=== PATIENT | male | born 1945 | race Caucasian/White ===

== ENCOUNTER 2022-03-10 11:06 | Inpatient (IN) | payer MEDICARE, BC ==
--- NOTE | 2022-03-10 11:38 | ED ---
Weakness HPI - General Chief complaint: Weakness Stated complaint: fall Time Seen by Provider: 03/10/22 11:07 Source: patient, family, EMS, RN notes reviewed Mode of arrival: EMS Limitations: no limitations - History of Present Illness Initial comments: This is a 76-year-old male who presents to the emergency department for weakness. States that over the last several days, his legs have felt particularly weak and seem to be giving out on him. He essentially slides onto the floor as opposed to having any significant falls. Denies ever hitting his h ead or having any loss of consciousness. He is on eliquis. States that he slipped on the floor at around 11 PM last night, and was there until around 11 AM today. Additionally, when EMS came to get him, he had a pulse ox of 78%. He was subsequently put on 2 L of oxygen, which he does not wear at home. States that he did not feel short of breath at that time. He does have a history of congestive heart failure, but denies any pulmonary issues such as COPD or asthma. His healthcare is managed at [facility], he is here at his [facility] and was subsequently brought to this emergency department. He has also noticed an increase in swelling in both of his lower extremities and suspects that he has had a weight gain, but is not positive. He is also noted to have a cough, which he states is chronic and has been present for many years. Denies any fevers, chills, sore throat, chest pain, palpitations, abdominal pain, nausea, vomiting, diarrhea, or headaches. MD Complaint: generalized weakness Onset/Timin -: days(s) Location: E, E - Related Data Home Medications Medication Instructions Recorded Confirmed Amiodarone [Cordarone] 200 mg PO Q12H 03/10/22 03/10/22 Apixaban [Eliquis] 5 mg PO BID 03/10/22 03/10/22 Furosemide [Lasix] 20 mg PO DAILY 03/10/22 03/10/22 Metoprolol Succinate (ER) [Toprol 25 mg PO HS 03/10/22 03/10/22 Xl] Allergies Allergy/AdvReac Type Severity Reaction Status Date / Time No Known Allergies Allergy Verified 03/10/22 15:16 Review of Systems ROS Statement: Those systems with pertinent positive or pertinent negative responses have been documented in the HPI. ROS Other: All systems not noted in ROS Statement are negative. Past Medical History Additional Past Medical History / Comment(s): CHF, lower back pain Additional Past Surgical History / Comment(s): Hernia repair General Exam Limitations: no limitations General appearance: alert, in no apparent distress Head exam: Present: atraumatic, normocephalic, normal inspection Respiratory exam: Present: rhonchi, decreased breath sounds, prolonged expiratory Cardiovascular Exam: Present: regular rate, normal rhythm, normal heart sounds GI/Abdominal exam: Present: soft, normal bowel sounds. Absent: distended, tenderness Extremities exam: Present: other (3+ pitting edema bilaterally) Neurological exam: Present: alert, oriented X3, CN II-XII intact Psychiatric exam: Present: normal affect, normal mood Skin exam: Present: warm, dry, intact, normal color. Absent: rash Course Vital Signs 03/10/22 03/10/22 11:08 14:26 Temperature 97.9 F Pulse Rate 102 H Respiratory 20 Rate Blood Pressure 100/79 O2 Sat by Pulse 95 94 L Oximetry EKG Findings - EKG Comments: EKG Findings:: Atrial fibrillation with rapid ventricular response. Right axis deviation. Ventricular rate 100 beats per minute, QRS duration 158 ms, QTC 471 ms. Medical Decision Making - Medical Decision Making This is a 76-year-old male who presents to the emergency department for weakness. EKG does reveal that the patient is in atrial fibrillation. Patient states that he has a known history of this and is currently on Eliquis. He is also taking amiodarone and metoprolol. Lab work is also consistent with dehydration. BNP is elevated suggesting a CHF exacerbation and his troponin is elevated as well. Patient currently denying any chest pain, shortness of breath, or history of myocardial infarctions. Case discussed with Dr. Carter, who advised a 500 mL bolus of normal saline to treat the dehydration and avoid too much more fluid overload. His d-dimer was also mildly elevated at 0.85. After discussion with ED attending, will avoid CTA at this time, as the patient is already on Eliquis. Will order this if the admitting team would like to proceed. COVID, influenza, and RSV testing were negative. My interpretation of the chest x-ray identifies a posterior infiltrate and a small left sided pleural effusion. His son later requested an x-ray of the lower back. Patient states that he has chronic lower back pain, however his son wants to be sure that he did not injure this in the fall. X-ray of the lumbar spine ordered with results pending at the time of admission. We did try to take the oxygen off of the patient, and he did well for a couple of minutes, and his oxygen subsequently started decreasing again to 85%. He was then put back on the 2 L of oxygen. Patient started on the pneumonia protocol with ceftriaxone and azithromycin. Blood and sputum cultures were obtained prior. Will admit the patient to medicine with pulmonology and cardiology consults for pneumonia, CHF exacerbation, and elevated troponin. This case was discussed in detail with the attending ED physician. Presentation, findings, and treatment plan discussed in detail as well. - Lab Data Result diagrams: 03/10/22 11:46 03/10/22 12:27 Lab Results 03/10/22 03/10/22 03/10/22 Range/Units 11:46 11:46 12:27 WBC 9.6 (3.8-10.6) k/uL RBC 3.87 L (4.30-5.90) m/uL Hgb 14.4 (13.0-17.5) gm/dL Hct 43.4 (39.0-53.0) % MCV 112.1 H (80.0-100.0) fL MCH 37.1 H (25.0-35.0) pg MCHC 33.1 (31.0-37.0) g/dL RDW 15.2 (11.5-15.5) % Plt Count 145 L (150-450) k/uL MPV 11.2 Neutrophils % 89 % Lymphocytes % 5 % Monocytes % 5 % Eosinophils % 1 % Basophils % 0 % Neutrophils # 8.6 H (1.3-7.7) k/uL Lymphocytes # 0.5 L (1.0-4.8) k/uL Monocytes # 0.4 (0-1.0) k/uL Eosinophils # 0.0 (0-0.7) k/uL Basophils # 0.0 (0-0.2) k/uL Manual Slide Review Performed Polychromasia Present Hypochromasia Slight Macrocytosis Marked A PT 15.0 H (9.0-12.0) sec INR 1.5 H (<1.2) APTT 27.7 (22.0-30.0) sec D-Dimer 0.85 H (<0.60) mg/L FEU Sodium (137-145) mmol/L Potassium (3.5-5.1) mmol/L Chloride (98-107) mmol/L Carbon Dioxide (22-30) mmol/L Anion Gap mmol/L BUN (9-20) mg/dL Creatinine (0.66-1.25) mg/dL Est GFR (CKD-EPI)AfAm (>60 ml/min/1.73 sqM) Est GFR (CKD-EPI)NonAf (>60 ml/min/1.73 sqM) Glucose (74-99) mg/dL Lactic Ac Sepsis Rflx Plasma Lactic Acid Cy (0.7-2.0) mmol/L Calcium (8.4-10.2) mg/dL Phosphorus (2.5-4.5) mg/dL Magnesium (1.6-2.3) mg/dL Total Bilirubin (0.2-1.3) mg/dL AST (17-59) U/L ALT (4-49) U/L Alkaline Phosphatase (38-126) U/L Creatine Kinase (55-170) U/L Troponin I (0.000-0.034) ng/mL NT-Pro-B Natriuret Pep pg/mL Total Protein (6.3-8.2) g/dL Albumin (3.5-5.0) g/dL Influenza Type A (PCR) Not Detected (Not Detectd) Influenza Type B (PCR) Not Detected (Not Detectd) RSV (PCR) Not Detected (Not Detectd) SARS-CoV-2 (PCR) Not Detected (Not Detectd) 03/10/22 03/10/22 03/10/22 Range/Units 12:27 12:27 12:27 WBC (3.8-10.6) k/uL RBC (4.30-5.90) m/uL Hgb (13.0-17.5) gm/dL Hct (39.0-53.0) % MCV (80.0-100.0) fL MCH (25.0-35.0) pg MCHC (31.0-37.0) g/dL RDW (11.5-15.5) % Plt Count (150-450) k/uL MPV Neutrophils % % Lymphocytes % % Monocytes % % Eosinophils % % Basophils % % Neutrophils # (1.3-7.7) k/uL Lymphocytes # (1.0-4.8) k/uL Monocytes # (0-1.0) k/uL Eosinophils # (0-0.7) k/uL Basophils # (0-0.2) k/uL Manual Slide Review Polychromasia Hypochromasia Macrocytosis PT (9.0-12.0) sec INR (<1.2) APTT (22.0-30.0) sec D-Dimer (<0.60) mg/L FEU Sodium 142 (137-145) mmol/L Potassium 4.6 (3.5-5.1) mmol/L Chloride 103 (98-107) mmol/L Carbon Dioxide 36 H (22-30) mmol/L Anion Gap 3 mmol/L BUN 54 H (9-20) mg/dL Creatinine 1.42 H (0.66-1.25) mg/dL Est GFR (CKD-EPI)AfAm 55 (>60 ml/min/1.73 sqM) Est GFR (CKD-EPI)NonAf 48 (>60 ml/min/1.73 sqM) Glucose 103 H (74-99) mg/dL Lactic Ac Sepsis Rflx Plasma Lactic Acid Cy 2.2 H* (0.7-2.0) mmol/L Calcium 8.7 (8.4-10.2) mg/dL Phosphorus 4.1 (2.5-4.5) mg/dL Magnesium 2.0 (1.6-2.3) mg/dL Total Bilirubin 1.7 H (0.2-1.3) mg/dL AST 51 (17-59) U/L ALT 31 (4-49) U/L Alkaline Phosphatase 89 (38-126) U/L Creatine Kinase 250 H (55-170) U/L Troponin I 0.119 H* (0.000-0.034) ng/mL NT-Pro-B Natriuret Pep pg/mL Total Protein 6.1 L (6.3-8.2) g/dL Albumin 3.5 (3.5-5.0) g/dL Influenza Type A (PCR) (Not Detectd) Influenza Type B (PCR) (Not Detectd) RSV (PCR) (Not Detectd) SARS-CoV-2 (PCR) (Not Detectd) 03/10/22 03/10/22 Range/Units 12:27 13:02 WBC (3.8-10.6) k/uL RBC (4.30-5.90) m/uL Hgb (13.0-17.5) gm/dL Hct (39.0-53.0) % MCV (80.0-100.0) fL MCH (25.0-35.0) pg MCHC (31.0-37.0) g/dL RDW (11.5-15.5) % Plt Count (150-450) k/uL MPV Neutrophils % % Lymphocytes % % Monocytes % % Eosinophils % % Basophils % % Neutrophils # (1.3-7.7) k/uL Lymphocytes # (1.0-4.8) k/uL Monocytes # (0-1.0) k/uL Eosinophils # (0-0.7) k/uL Basophils # (0-0.2) k/uL Manual Slide Review Polychromasia Hypochromasia Macrocytosis PT (9.0-12.0) sec INR (<1.2) APTT (22.0-30.0) sec D-Dimer (<0.60) mg/L FEU Sodium (137-145) mmol/L Potassium (3.5-5.1) mmol/L Chloride (98-107) mmol/L Carbon Dioxide (22-30) mmol/L Anion Gap mmol/L BUN (9-20) mg/dL Creatinine (0.66-1.25) mg/dL Est GFR (CKD-EPI)AfAm (>60 ml/min/1.73 sqM) Est GFR (CKD-EPI)NonAf (>60 ml/min/1.73 sqM) Glucose (74-99) mg/dL Lactic Ac Sepsis Rflx Y Plasma Lactic Acid Cy (0.7-2.0) mmol/L Calcium (8.4-10.2) mg/dL Phosphorus (2.5-4.5) mg/dL Magnesium (1.6-2.3) mg/dL Total Bilirubin (0.2-1.3) mg/dL AST (17-59) U/L ALT (4-49) U/L Alkaline Phosphatase (38-126) U/L Creatine Kinase (55-170) U/L Troponin I (0.000-0.034) ng/mL NT-Pro-B Natriuret Pep 88219 pg/mL Total Protein (6.3-8.2) g/dL Albumin (3.5-5.0) g/dL Influenza Type A (PCR) (Not Detectd) Influenza Type B (PCR) (Not Detectd) RSV (PCR) (Not Detectd) SARS-CoV-2 (PCR) (Not Detectd) - Radiology Data Radiology results: report reviewed, image reviewed Disposition Clinical Impression: CHF exacerbation, Elevated troponin, Weakness, Dehydration, Pneumonia Disposition: ADMITTED IP TO THIS HOSP
[2022-03-10 12:13] LABS: Basophils % (A) 0 %; Eosinophils % (A) 1 %; HCT 43.4 % (39.0-53.0); HGB 14.4 gm/dL (13.0-17.5); Hypochromasia Slight; Lymphocytes # (A) 0.5 k/uL (1.0-4.8); Lymphocytes % (A) 5 %; MCH 37.1 pg (25.0-35.0); MCHC 33.1 g/dL (31.0-37.0); MCV 112.1 fL (80.0-100.0); Macrocytosis Marked; Mean Platelet Volume 11.2; Monocytes # (A) 0.4 k/uL (0-1.0); Monocytes % (A) 5 %; Neutrophils # (A) 8.6 k/uL (1.3-7.7); Neutrophils % (A) 89 %; Platelet Count 145 k/uL (150-450); RBC 3.87 m/uL (4.30-5.90); RDW 15.2 % (11.5-15.5); WBC 9.6 k/uL (3.8-10.6)
--- NOTE | 2022-03-10 12:27 | XR ---
EXAMINATION TYPE: XR chest 2V DATE OF EXAM: 03/10/2022 COMPARISON: None INDICATION: Weakness TECHNIQUE: Frontal and lateral views of the chest are obtained. FINDINGS: The heart size is normal. The pulmonary vasculature is normal. There is a small left pleural effusion. Hyperinflation flattening the diaphragms may be present. Krystin elate for COPD. Posterior infiltrate is present on the lateral projection.. Follow-up can be perform ed IMPRESSION: 1. Posterior infiltrate. Correlate for lower lobe atelectasis and pneumonia. 2. Small left pleural effusion. 3. COPD
[2022-03-10 12:39] LABS: INR 1.5 (<1.2); Partial Thromboplastin Time 27.7 sec (22.0-30.0)
[2022-03-10 12:58] LABS: Albumin 3.5 g/dL (3.5-5.0); Calcium 8.7 mg/dL (8.4-10.2); Phosphorus 4.1 mg/dL (2.5-4.5); Potassium 4.6 mmol/L (3.5-5.1); Total Bilirubin 1.7 mg/dL (0.2-1.3); Total Protein 6.1 g/dL (6.3-8.2)
[2022-03-10 13:17] LABS: Polychromasia Present
[2022-03-10] MEDS ORDERED: SODIUM CHLORIDE 0.9% 500 ML 500 ML IV STA (13:41)
[2022-03-10] MEDS ORDERED: PNEUMONIA PROTOCOL UTILIZED 1 EACH MISC PO PRN (14:01)
[2022-03-10] MEDS ORDERED: AZITHROMYCIN 500 MG in SODIUM CHLORIDE 0.9% 250 ML IVPB STA (14:01)
[2022-03-10] MEDS ORDERED: ONDANSETRON 4 MG/2 ML VIAL IVP PRN (14:57)
[2022-03-10] MEDS ORDERED: ACETAMINOPHEN TAB 325 MG TAB PO PRN (14:57)
[2022-03-10] MEDS ORDERED: HYDROcodone/APAP 5-325MG 1 EACH TAB PO PRN (14:57)
[2022-03-10] MEDS ORDERED: NALOXONE 0.4 MG/ML 1 ML VIAL IV PRN (14:57)
[2022-03-10] MEDS ORDERED: FUROSEMIDE 10 MG/ML 4 ML VIAL IV SCH (16:00)
[2022-03-10] MEDS ORDERED: LORazepam 0.5 MG TAB PO PRN (16:00)
[2022-03-10] MEDS ORDERED: AMIODARONE 200 MG TAB PO SCH (16:00)
--- NOTE | 2022-03-10 17:34 | XR ---
EXAMINATION TYPE: XR lumbar spine 2 or 3V DATE OF EXAM: 03/10/2022 5:05 PM INDICATION: Patient age:Male; 76 years old; Reason for study: Lower back pain; COMPARISON: None TECHNIQUE: Frontal, lateral and coned in L5-S1 lateral views of the spine. FINDINGS: Wedging of the L4 vertebral body with at least 25% height loss anteriorly. There are scatte red facet joint arthropathy and osteophyte formation. There is appropriate alignment of the spinal ca nal. The visualized abdomen is within normal limits. IMPRESSION: Wedging of L4 vertebral body could represent acute fracture. Consider CT for complete evaluation of t he lumbar spine.
[2022-03-10] MEDS: AMIODARONE 200 MG TAB PO SCH ×2 (21:41→21:45)
[2022-03-10] MEDS: APIXABAN 5 MG TAB PO SCH (21:45)
[2022-03-10] MEDS: FUROSEMIDE 10 MG/ML 2 ML VIAL IV SCH (21:46)
[2022-03-10] MEDS: METOPROLOL SUCCINATE (ER) 25 MG TAB.ER.24H PO SCH (21:48)
--- NOTE | 2022-03-10 22:10 | CT ---
EXAMINATION TYPE: CT thor lumbar spine wo con, CT sacrum wo con CT DLP: 1932.2 mGycm, Automated exposure control for dose reduction was used. DATE OF EXAM: 03/10/2022 9:50 PM COMPARISON: None. CLINICAL INDICATION:Male, 76 years old with history of fx; PHH, weakness. recent falls. (accession [id number]), weakness. recent falls. poss lumbar fx. (accession [id number]) TECHNIQUE: Axial images of the thoracic lumbar sacral spine were obtained without contrast. Coronal a nd sagittal reformats were performed. 3-D reformats of the bones were created on a separate workstati on and submitted for review. FINDINGS: Overall the curvature of the spine slightly straightened. There are vertebral body endplat e deformities scattered throughout the spine most pronounced at T11 L1, L2 and L4. There is mild retr opulsion at L1 measuring up to 5 mm. Additionally there is multi multilevel disc bulging throughout t he lower lumbar spine. No spinal canal stenosis visualized. As well as portions of the sacrum demonstrate degeneration changes of the sacroiliac joints bilateral ly. No evidence of sacral fracture. Remainder of the pelvis appears intact. Moderate to severe emphysema changes in lung apices. There is small bilateral pleural effusions. Hear t is enlarged for size. There is coronary artery atherosclerosis. Airspace opacities in the lungs IMPRESSION: 1. Diffuse osseous demineralization limits evaluation for acute fracture. No obvious fracture line i dentified. Consider MRI for further evaluation if there remains clinical concern. 2. L1 with retropulsion up to 5 mm could represent sequela of compression fracture. Attention on MRI . 3. No evidence for sacral fracture. Bilateral sacroiliac joint degeneration. 4. There is airspace opacity seen throughout the lungs correlate for pneumonia. 5. Cardiomegaly, pulmonary vascular congestion and pleural effusions correlate with serum BNP for he art failure.
--- NOTE | 2022-03-10 22:47 | US ---
EXAMINATION TYPE: US venous doppler duplex LE BI DATE OF EXAM: 03/10/2022 10:32 PM COMPARISON: NONE CLINICAL HISTORY: r/o DVT. SIDE PERFORMED: Bilateral TECHNIQUE: The lower extremity deep venous system is examined utilizing real time linear array sonog laith with graded compression, doppler sonography and color-flow sonography. VESSELS IMAGED: Common Femoral Vein Deep Femoral Vein Greater Saphenous Vein * Femoral Vein Popliteal Vein Small Saphenous Vein * Proximal Calf Veins (* superficial vessels) Right Leg: Negative for DVT Left Leg: Negative for DVT IMPRESSION: No evidence of deep vein thrombosis in both legs.
[2022-03-10 22:51] LABS: Glucose,Whole Blood 127 mg/dL (70-110)
--- NOTE | 2022-03-11 01:56 | HP ---
HISTORY AND PHYSICAL CHIEF COMPLAINT: Weakness. HISTORY OF PRESENT ILLNESS: This is a 76-year-old gentleman with past medical history of multiple medical problems including CHF, back pain. He is living by himself. The patient is complaining of extreme weakness, unable to move. The patient has leg swelling and some shortness of breath. The patient came to [facility]. CHF and as well as pneumonia is also suspected. The patient was admitted. Troponin is also elevated to 0.119. There is no history of any fever, rigors, or chills. The COVID RSV is negative. PAST MEDICAL HISTORY: Reviewed include CHF. The rest of history and rest of the chart is reviewed. HOME MEDICATIONS: Reviewed include metoprolol. Dose and rest of the medications reviewed. ALLERGIES: None. FAMILY HISTORY: No history of heart disease or strokes in the family. SOCIAL HISTORY: No history of smoking. Alcohol intake currently. REVIEW OF SYSTEMS: A 14-point review of systems is negative except as mentioned earlier. PHYSICAL EXAMINATION: VITAL SIGNS: Pulse 102, blood pressure 100/70, respirations 20. HEENT: Conjunctivae normal. NECK: Jugular venous distention about 10 cm distended. CARDIOVASCULAR: S1, S2 muffled. Ejection systolic murmur. RESPIRATIONS: Breath sounds diminished at the bases. A few scattered rhonchi. ABDOMEN: Soft, nontender. No mass palpable. LEGS: Bilateral leg edema pitting up to the knee. SKIN: No ulcer, rash, bleeding. JOINTS: No active deforming arthropathy. NERVOUS SYSTEM: No focal deficits. LABS: Reviewed. ASSESSMENT: 1. Congestive heart failure acute exacerbation, ejection fraction unknown. 2. Possible developing pneumonia. 3. Troponin 0.119, rule out acute [id number]-elevation myocardial infarction. 4. History of low back pain. 5. History of hernia repair. RECOMMENDATIONS AND DISCUSSION: In this 76-year-old gentleman who presented with multiple complex medical issues, we will monitor the patient closely. Continue the current management and symptomatic treatment. I would recommend initiate intravenous diuresis. Cardiology consultation. 2D echo. Complete cardiac workup. Otherwise, I would also recommend symptomatic treatment for the elevated troponin. Otherwise I will also recommend a course of antibiotics for the suspected infiltrate and Pulmonary also will be consulted. Overall prognosis remains guarded because of multiple complex medical issues, which I discussed at length with the patient and son at the bedside. Further recommendations to follow. See orders for further details. MMODL / IJN: [id number] /
[2022-03-11 04:42] LABS: Basophils % (A) 0 %; Eosinophils % (A) 0 %; HCT 43.7 % (39.0-53.0); HGB 13.7 gm/dL (13.0-17.5); Hypochromasia Moderate; Lymphocytes # (A) 0.5 k/uL (1.0-4.8); Lymphocytes % (A) 6 %; MCH 36.2 pg (25.0-35.0); MCHC 31.4 g/dL (31.0-37.0); MCV 115.2 fL (80.0-100.0); Macrocytosis Marked; Mean Platelet Volume 9.1; Monocytes # (A) 0.5 k/uL (0-1.0); Monocytes % (A) 5 %; Neutrophils # (A) 7.9 k/uL (1.3-7.7); Neutrophils % (A) 88 %; Platelet Count 162 k/uL (150-450); RBC 3.79 m/uL (4.30-5.90); RDW 15.2 % (11.5-15.5)
[2022-03-11 04:55] LABS: Albumin 2.9 g/dL (3.5-5.0); Calcium 8.2 mg/dL (8.4-10.2); Potassium 4.9 mmol/L (3.5-5.1); Total Bilirubin 0.6 mg/dL (0.2-1.3); Total Protein 5.2 g/dL (6.3-8.2)
[2022-03-11 07:09] LABS: Appearance,Urine Cloudy (Clear); Bilirubin,Urine Negative (Negative); Blood,Urine Large (Negative); Color,Urine Yellow; Glucose,Urine (UA) Negative (Negative); Hyaline Casts,Urine 14 /lpf (0-2); Ketones,Urine Negative (Negative); Leukocyte Esterase,Urine Negative (Negative); Mucus,Urine Rare /hpf; Nitrite,Urine Negative (Negative); Protein,Urine 1+ (Negative); RBC,Urine 135 /hpf (0-5); Squamous Epithelial Cell,Urine <1 /hpf (0-4); Urobilinogen,Urine <2.0 mg/dL (<2.0); WBC,Urine 6 /hpf (0-5)
--- NOTE | 2022-03-11 07:57 | XR ---
EXAMINATION TYPE: XR chest 2V DATE OF EXAM: 03/11/2022 6:44 AM COMPARISON: Chest radiograph from one day prior. TECHNIQUE: XR chest 2V Frontal and lateral views of the chest. CLINICAL INDICATION:Male, 76 years old with history of pneumonia; FINDINGS: Lungs/Pleura: No evidence of focal consolidation or pneumothorax. Blunting of the costophrenic angles is present. Pulmonary vascularity: Unremarkable. Heart/mediastinum: Cardiomediastinal silhouette is unremarkable. Musculoskeletal: No acute osseous pathology. IMPRESSION: Similar basilar airspace opacities with bilateral pleural effusions.
[2022-03-11] MEDS: PANTOPRAZOLE 40 MG TABLET PO SCH (08:07)
[2022-03-11] MEDS: AZITHROMYCIN 500 MG TAB PO SCH (08:07)
[2022-03-11] MEDS ORDERED: FUROSEMIDE 20 MG TAB PO SCH (09:00)
--- NOTE | 2022-03-11 09:34 | P.CNOR ---
History of Present Illness - [facility] Consult date: 03/11/22 Requesting physician: Vicente Quinonez Consult reason: other (fx of L4) History of present illness: Patient is a 76-year-old male who presents to the emergency department yesterday status post multiple falls at home. Patient does have medical history of CHF, Patient says he has had increasing weakness in his bilateral lower extremities over the past several days. Patient just notes this weakness seem to have been progressing slowly over the past several days and cannot pinpoint when it really started. Patient was seen at bedside this morning lying semirecumbent position. Patient denies ever hitting his head/losing consciousness. Patient says at home normally ambulates without a walker and cane. Patient denies having any pain in the lower extremities at this time. Patient does mention some low back pain that is generalized in nature and denies radiation of pain. Patient denies any saddle anesthesia/loss of bowel or bladder control. Patient denies chest pain, fever, nausea, vomiting, change in vision. Past Medical History Past Medical History: Atrial Fibrillation, Heart Failure Additional Past Medical History / Comment(s): CHF, lower back pain History of Any Multi-Drug Resistant Organisms: None Reported Additional Past Surgical History / Comment(s): Hernia repair Smoking Status: Never smoker Medications and Allergies Home Medications Medication Instructions Recorded Confirmed Type Amiodarone [Cordarone] 200 mg PO Q12H 03/10/22 03/10/22 History Apixaban [Eliquis] 5 mg PO BID 03/10/22 03/10/22 History Furosemide [Lasix] 20 mg PO DAILY 03/10/22 03/10/22 History Metoprolol Succinate (ER) [Toprol 25 mg PO HS 03/10/22 03/10/22 History Xl] Allergies Allergy/AdvReac Type Severity Reaction Status Date / Time No Known Allergies Allergy Verified 03/10/22 15:16 Physical Examination Inspection: Positive for scoliosis throughout the spine. Negative for any open fractures, significant erythema/ecchymosis/ulcers. Positive for edema in the bilateral lower extremities Sensation: Sensation is equal, symmetric, bilaterally intact throughout the upper and lower extremities on exam Palpation: There is minimal TTP diffusely throughout the lumbar spine and the bilateral SI joints. Patient is nontender to palpation throughout rest exam Range of motion: Patient has full range of motion in bilateral upper extremities on exam. Patient does have limited range of motion in bilateral lower extremit ies and hip flexion/extension. Patient does have full range of motion and knee flexion/extension bilaterally in ankle dorsi/plantar flexion. Motor: 4-/5 in bilateral hips in flexion/extension. 4/5 in all other major motor groups in bilateral lower extremities. Bilateral upper extremities 4+/5 in all major motor groups Neurovascular status: Radial pulses intact, 2+ bilaterally. Cap refill under 3 seconds in digits of upper extremities. Special tests: Negative clonus bilaterally. Negative Homans bilaterally. Negative Shayla's bilaterally. Results - Labs Labs: Abnormal Lab Results - Last 24 Hours (Table) 03/10/22 03/10/22 03/10/22 Range/Units 11:46 11:46 12:27 RBC 3.87 L (4.30-5.90) m/uL MCV 112.1 H (80.0-100.0) fL MCH 37.1 H (25.0-35.0) pg Plt Count 145 L (150-450) k/uL Neutrophils # 8.6 H (1.3-7.7) k/uL Lymphocytes # 0.5 L (1.0-4.8) k/uL Macrocytosis Marked A PT 15.0 H (9.0-12.0) sec INR 1.5 H (<1.2) D-Dimer 0.85 H (<0.60) mg/L FEU Carbon Dioxide (22-30) mmol/L BUN (9-20) mg/dL Creatinine (0.66-1.25) mg/dL Glucose (74-99) mg/dL POC Glucose (mg/dL) (70-110) mg/dL Plasma Lactic Acid Cy (0.7-2.0) mmol/L Calcium (8.4-10.2) mg/dL Total Bilirubin (0.2-1.3) mg/dL Creatine Kinase (55-170) U/L Troponin I 0.119 H* (0.000-0.034) ng/mL C-Reactive Protein (<1.0) mg/dL Total Protein (6.3-8.2) g/dL Albumin (3.5-5.0) g/dL Procalcitonin (0.02-0.09) ng/mL Urine Protein (Negative) Urine Blood (Negative) Urine RBC (0-5) /hpf Urine WBC (0-5) /hpf Hyaline Casts (0-2) /lpf Urine Mucus (None) /hpf 03/10/22 03/10/22 03/10/22 Range/Units 12:27 12:27 15:53 RBC (4.30-5.90) m/uL MCV (80.0-100.0) fL MCH (25.0-35.0) pg Plt Count (150-450) k/uL Neutrophils # (1.3-7.7) k/uL Lymphocytes # (1.0-4.8) k/uL Macrocytosis PT (9.0-12.0) sec INR (<1.2) D-Dimer (<0.60) mg/L FEU Carbon Dioxide 36 H (22-30) mmol/L BUN 54 H (9-20) mg/dL Creatinine 1.42 H (0.66-1.25) mg/dL Glucose 103 H (74-99) mg/dL POC Glucose (mg/dL) (70-110) mg/dL Plasma Lactic Acid Cy 2.2 H* (0.7-2.0) mmol/L Calcium (8.4-10.2) mg/dL Total Bilirubin 1.7 H (0.2-1.3) mg/dL Creatine Kinase 250 H (55-170) U/L Troponin I (0.000-0.034) ng/mL C-Reactive Protein 7.3 H (<1.0) mg/dL Total Protein 6.1 L (6.3-8.2) g/dL Albumin (3.5-5.0) g/dL Procalcitonin (0.02-0.09) ng/mL Urine Protein (Negative) Urine Blood (Negative) Urine RBC (0-5) /hpf Urine WBC (0-5) /hpf Hyaline Casts (0-2) /lpf Urine Mucus (None) /hpf 03/10/22 03/10/22 03/10/22 Range/Units 15:53 15:53 15:53 RBC (4.30-5.90) m/uL MCV (80.0-100.0) fL MCH (25.0-35.0) pg Plt Count (150-450) k/uL Neutrophils # (1.3-7.7) k/uL Lymphocytes # (1.0-4.8) k/uL Macrocytosis PT (9.0-12.0) sec INR (<1.2) D-Dimer (<0.60) mg/L FEU Carbon Dioxide (22-30) mmol/L BUN (9-20) mg/dL Creatinine (0.66-1.25) mg/dL Glucose (74-99) mg/dL POC Glucose (mg/dL) (70-110) mg/dL Plasma Lactic Acid Cy 3.1 H* (0.7-2.0) mmol/L Calcium (8.4-10.2) mg/dL Total Bilirubin (0.2-1.3) mg/dL Creatine Kinase (55-170) U/L Troponin I 0.109 H* (0.000-0.034) ng/mL C-Reactive Protein (<1.0) mg/dL Total Protein (6.3-8.2) g/dL Albumin (3.5-5.0) g/dL Procalcitonin 0.14 H (0.02-0.09) ng/mL Urine Protein (Negative) Urine Blood (Negative) Urine RBC (0-5) /hpf Urine WBC (0-5) /hpf Hyaline Casts (0-2) /lpf Urine Mucus (None) /hpf 03/10/22 03/10/22 03/10/22 Range/Units 17:47 19:02 22:49 RBC (4.30-5.90) m/uL MCV (80.0-100.0) fL MCH (25.0-35.0) pg Plt Count (150-450) k/uL Neutrophils # (1.3-7.7) k/uL Lymphocytes # (1.0-4.8) k/uL Macrocytosis PT (9.0-12.0) sec INR (<1.2) D-Dimer (<0.60) mg/L FEU Carbon Dioxide (22-30) mmol/L BUN (9-20) mg/dL Creatinine (0.66-1.25) mg/dL Glucose (74-99) mg/dL POC Glucose (mg/dL) 127 H (70-110) mg/dL Plasma Lactic Acid Cy 3.3 H* (0.7-2.0) mmol/L Calcium (8.4-10.2) mg/dL Total Bilirubin (0.2-1.3) mg/dL Creatine Kinase (55-170) U/L Troponin I 0.108 H* (0.000-0.034) ng/mL C-Reactive Protein (<1.0) mg/dL Total Protein (6.3-8.2) g/dL Albumin (3.5-5.0) g/dL Procalcitonin (0.02-0.09) ng/mL Urine Protein (Negative) Urine Blood (Negative) Urine RBC (0-5) /hpf Urine WBC (0-5) /hpf Hyaline Casts (0-2) /lpf Urine Mucus (None) /hpf 03/10/22 03/11/22 03/11/22 Range/Units 23:32 04:21 04:21 RBC 3.79 L (4.30-5.90) m/uL MCV 115.2 H (80.0-100.0) fL MCH 36.2 H (25.0-35.0) pg Plt Count (150-450) k/uL Neutrophils # 7.9 H (1.3-7.7) k/uL Lymphocytes # 0.5 L (1.0-4.8) k/uL Macrocytosis Marked A PT (9.0-12.0) sec INR (<1.2) D-Dimer (<0.60) mg/L FEU Carbon Dioxide 34 H (22-30) mmol/L BUN 54 H (9-20) mg/dL Creatinine 1.38 H (0.66-1.25) mg/dL Glucose 109 H (74-99) mg/dL POC Glucose (mg/dL) (70-110) mg/dL Plasma Lactic Acid Cy 2.8 H* (0.7-2.0) mmol/L Calcium 8.2 L (8.4-10.2) mg/dL Total Bilirubin (0.2-1.3) mg/dL Creatine Kinase (55-170) U/L Troponin I (0.000-0.034) ng/mL C-Reactive Protein (<1.0) mg/dL Total Protein 5.2 L (6.3-8.2) g/dL Albumin 2.9 L (3.5-5.0) g/dL Procalcitonin (0.02-0.09) ng/mL Urine Protein (Negative) Urine Blood (Negative) Urine RBC (0-5) /hpf Urine WBC (0-5) /hpf Hyaline Casts (0-2) /lpf Urine Mucus (None) /hpf 03/11/22 Range/Units 06:00 RBC (4.30-5.90) m/uL MCV (80.0-100.0) fL MCH (25.0-35.0) pg Plt Count (150-450) k/uL Neutrophils # (1.3-7.7) k/uL Lymphocytes # (1.0-4.8) k/uL Macrocytosis PT (9.0-12.0) sec INR (<1.2) D-Dimer (<0.60) mg/L FEU Carbon Dioxide (22-30) mmol/L BUN (9-20) mg/dL Creatinine (0.66-1.25) mg/dL Glucose (74-99) mg/dL POC Glucose (mg/dL) (70-110) mg/dL Plasma Lactic Acid Cy (0.7-2.0) mmol/L Calcium (8.4-10.2) mg/dL Total Bilirubin (0.2-1.3) mg/dL Creatine Kinase (55-170) U/L Troponin I (0.000-0.034) ng/mL C-Reactive Protein (<1.0) mg/dL Total Protein (6.3-8.2) g/dL Albumin (3.5-5.0) g/dL Procalcitonin (0.02-0.09) ng/mL Urine Protein 1+ H (Negative) Urine Blood Large H (Negative) Urine RBC 135 H (0-5) /hpf Urine WBC 6 H (0-5) /hpf Hyaline Casts 14 H (0-2) /lpf Urine Mucus Rare H (None) /hpf Microbiology - Last 24 Hours (Table) 03/10/22 16:22 Gram Stain - Preliminary Sputum Sputum Culture - Preliminary H & H 03/10/22 03/11/22 Range/Units 11:46 04:21 Hgb 14.4 13.7 (13.0-17.5) gm/dL Hct 43.4 43.7 (39.0-53.0) % Coagulation 03/10/22 Range/Units 11:46 INR 1.5 H (<1.2) Result Diagrams: 03/11/22 04:21 03/11/22 04:21 - Diagnostic results CT Scan - lumbar: report reviewed, image reviewed (Multiple levels of vertebral compression fractures evident) Assessment and Plan Assessment: 1. Bilateral lower extremity weakness Plan: 1. Bilateral lower extremity weakness; back pain - CT of thoracic/lumbar spine does reveal multiple levels of compression fractures. MRI of lumbar spine may be warranted for further evaluation. At this time we do not recommend any emergent/urgent orthopedic surgical intervention. We will continue to follow patient during stay in hospital. 2. Appreciate medical management 3. Pain management - [place]; Tylenol 4. DVT prophylaxis - eliquis 5. GI prophylaxis - Protonix 6. PT/OT - weightbearing as tolerated with walker and assistance. 7. Appreciate consult Time with Patient: Less than 30
--- NOTE | 2022-03-11 11:04 | P.PN ---
Subjective This is a pleasant 76 years old male with multiple problems presents with respiratory symptoms, mainly with shortness of breath suspicious for acute CHF exacerbation, known ejection fraction unknown Also there is a suspicion of bilateral pneumonia. Patient has been feeling weakness for about several days and fell twice at home. For the last 3 days The patient feels generally weak however he denies specific weakness or asymmetric weakness. It looks like secondary to severe leg edema about 3+ He denies chest pain or abdominal pain. However per MRI of the thoracic and lumbar spine there's multiple levels of compression fractures. Today he thinks that his dyspnea is better. He is mildly tachypneic. He has full mentation. Patient is not on home oxygen His PCP is Dr. holder He has external urinary catheter Vitas looks stable, he is saturating 99% on 3 L, blood pressure on the low side 96/62 Creatinine improving slightly 1.4-1.3. Objective - Vital Signs Vital signs: Vital Signs Temp 97.5 F L 03/11/22 04:14 Pulse 97 03/11/22 08:00 Resp 16 03/11/22 08:11 BP 89/54 03/11/22 10:39 Pulse Ox 99 03/11/22 08:00 FiO2 Intake & Output 03/10/22 03/11/22 03/11/22 18:59 06:59 18:59 Output Total 200 Balance -200 Weight 63.503 kg 75.5 kg Output: Urine 200 Other: Voiding Method External Catheter - Exam -GENERAL: The patient is alert and oriented x3, not in any acute distress. Well developed, well nourished. Generally tired and weak HEENT: Pupils are round and equally reacting to light. EOMI. No scleral icterus. No conjunctival pallor. Normocephalic, atraumatic. No pharyngeal erythema. No thyromegaly. CARDIOVASCULAR: S1 and S2 present. No murmurs, rubs, or gallops. -PULMONARY: Chest is clear to auscultation, no wheezing . Mildly tachypneic and bilateral medication ABDOMEN: Soft, nontender, nondistended, normoactive bowel sounds. No palpable organomegaly. MUSCULOSKELETAL: No joint swelling or deformity. -EXTREMITIES: No cyanosis, clubbing, .bilateral pitting leg l edema. NEUROLOGICAL: Gross neurological examination did not reveal any focal deficits. SKIN: No rashes. no petechiae. - Labs CBC & Chem 7: 03/11/22 04:21 03/11/22 04:21 Labs: Abnormal Lab Results - Last 24 Hours (Table) 03/10/22 03/10/22 03/10/22 Range/Units 11:46 11:46 12:27 RBC 3.87 L (4.30-5.90) m/uL MCV 112.1 H (80.0-100.0) fL MCH 37.1 H (25.0-35.0) pg Plt Count 145 L (150-450) k/uL Neutrophils # 8.6 H (1.3-7.7) k/uL Lymphocytes # 0.5 L (1.0-4.8) k/uL Macrocytosis Marked A PT 15.0 H (9.0-12.0) sec INR 1.5 H (<1.2) D-Dimer 0.85 H (<0.60) mg/L FEU Carbon Dioxide (22-30) mmol/L BUN (9-20) mg/dL Creatinine (0.66-1.25) mg/dL Glucose (74-99) mg/dL POC Glucose (mg/dL) (70-110) mg/dL Plasma Lactic Acid Cy (0.7-2.0) mmol/L Calcium (8.4-10.2) mg/dL Total Bilirubin (0.2-1.3) mg/dL Creatine Kinase (55-170) U/L Troponin I 0.119 H* (0.000-0.034) ng/mL C-Reactive Protein (<1.0) mg/dL Total Protein (6.3-8.2) g/dL Albumin (3.5-5.0) g/dL Procalcitonin (0.02-0.09) ng/mL Urine Protein (Negative) Urine Blood (Negative) Urine RBC (0-5) /hpf Urine WBC (0-5) /hpf Hyaline Casts (0-2) /lpf Urine Mucus (None) /hpf 03/10/22 03/10/22 03/10/22 Range/Units 12: 12:27 15:53 RBC (4.30-5.90) m/uL MCV (80.0-100.0) fL MCH (25.0-35.0) pg Plt Count (150-450) k/uL Neutrophils # (1.3-7.7) k/uL Lymphocytes # (1.0-4.8) k/uL Macrocytosis PT (9.0-12.0) sec INR (<1.2) D-Dimer (<0.60) mg/L FEU Carbon Dioxide 36 H (22-30) mmol/L BUN 54 H (9-20) mg/dL Creatinine 1.42 H (0.66-1.25) mg/dL Glucose 103 H (74-99) mg/dL POC Glucose (mg/dL) (70-110) mg/dL Plasma Lactic Acid Cy 2.2 H* (0.7-2.0) mmol/L Calcium (8.4-10.2) mg/dL Total Bilirubin 1.7 H (0.2-1.3) mg/dL Creatine Kinase 250 H (55-170) U/L Troponin I (0.000-0.034) ng/mL C-Reactive Protein 7.3 H (<1.0) mg/dL Total Protein 6.1 L (6.3-8.2) g/dL Albumin (3.5-5.0) g/dL Procalcitonin (0.02-0.09) ng/mL Urine Protein (Negative) Urine Blood (Negative) Urine RBC (0-5) /hpf Urine WBC (0-5) /hpf Hyaline Casts (0-2) /lpf Urine Mucus (None) /hpf 03/10/22 03/10/22 03/10/22 Range/Units 15:53 15:53 15:53 RBC (4.30-5.90) m/uL MCV (80.0-100.0) fL MCH (25.0-35.0) pg Plt Count (150-450) k/uL Neutrophils # (1.3-7.7) k/uL Lymphocytes # (1.0-4.8) k/uL Macrocytosis PT (9.0-12.0) sec INR (<1.2) D-Dimer (<0.60) mg/L FEU Carbon Dioxide (22-30) mmol/L BUN (9-20) mg/dL Creatinine (0.66-1.25) mg/dL Glucose (74-99) mg/dL POC Glucose (mg/dL) (70-110) mg/dL Plasma Lactic Acid Cy 3.1 H* (0.7-2.0) mmol/L Calcium (8.4-10.2) mg/dL Total Bilirubin (0.2-1.3) mg/dL Creatine Kinase (55-170) U/L Troponin I 0.109 H* (0.000-0.034) ng/mL C-Reactive Protein (<1.0) mg/dL Total Protein (6.3-8.2) g/dL Albumin (3.5-5.0) g/dL Procalcitonin 0.14 H (0.02-0.09) ng/mL Urine Protein (Negative) Urine Blood (Negative) Urine RBC (0-5) /hpf Urine WBC (0-5) /hpf Hyaline Casts (0-2) /lpf Urine Mucus (None) /hpf 03/10/22 03/10/22 03/10/22 Range/Units 17:47 19:02 22:49 RBC (4.30-5.90) m/uL MCV (80.0-100.0) fL MCH (25.0-35.0) pg Plt Count (150-450) k/uL Neutrophils # (1.3-7.7) k/uL Lymphocytes # (1.0-4.8) k/uL Macrocytosis PT (9.0-12.0) sec INR (<1.2) D-Dimer (<0.60) mg/L FEU Carbon Dioxide (22-30) mmol/L BUN (9-20) mg/dL Creatinine (0.66-1.25) mg/dL Glucose (74-99) mg/dL POC Glucose (mg/dL) 127 H (70-110) mg/dL Plasma Lactic Acid Cy 3.3 H* (0.7-2.0) mmol/L Calcium (8.4-10.2) mg/dL Total Bilirubin (0.2-1.3) mg/dL Creatine Kinase (55-170) U/L Troponin I 0.108 H* (0.000-0.034) ng/mL C-Reactive Protein (<1.0) mg/dL Total Protein (6.3-8.2) g/dL Albumin (3.5-5.0) g/dL Procalcitonin (0.02-0.09) ng/mL Urine Protein (Negative) Urine Blood (Negative) Urine RBC (0-5) /hpf Urine WBC (0-5) /hpf Hyaline Casts (0-2) /lpf Urine Mucus (None) /hpf 03/10/22 03/11/22 03/11/22 Range/Units 23:32 04:21 04:21 RBC 3.79 L (4.30-5.90) m/uL MCV 115.2 H (80.0-100.0) fL MCH 36.2 H (25.0-35.0) pg Plt Count (150-450) k/uL Neutrophils # 7.9 H (1.3-7.7) k/uL Lymphocytes # 0.5 L (1.0-4.8) k/uL Macrocytosis Marked A PT (9.0-12.0) sec INR (<1.2) D-Dimer (<0.60) mg/L FEU Carbon Dioxide 34 H (22-30) mmol/L BUN 54 H (9-20) mg/dL Creatinine 1.38 H (0.66-1.25) mg/dL Glucose 109 H (74-99) mg/dL POC Glucose (mg/dL) (70-110) mg/dL Plasma Lactic Acid Cy 2.8 H* (0.7-2.0) mmol/L Calcium 8.2 L (8.4-10.2) mg/dL Total Bilirubin (0.2-1.3) mg/dL Creatine Kinase (55-170) U/L Troponin I (0.000-0.034) ng/mL C-Reactive Protein (<1.0) mg/dL Total Protein 5.2 L (6.3-8.2) g/dL Albumin 2.9 L (3.5-5.0) g/dL Procalcitonin (0.02-0.09) ng/mL Urine Protein (Negative) Urine Blood (Negative) Urine RBC (0-5) /hpf Urine WBC (0-5) /hpf Hyaline Casts (0-2) /lpf Urine Mucus (None) /hpf 03/11/22 Range/Units 06:00 RBC (4.30-5.90) m/uL MCV (80.0-100.0) fL MCH (25.0-35.0) pg Plt Count (150-450) k/uL Neutrophils # (1.3-7.7) k/uL Lymphocytes # (1.0-4.8) k/uL Macrocytosis PT (9.0-12.0) sec INR (<1.2) D-Dimer (<0.60) mg/L FEU Carbon Dioxide (22-30) mmol/L BUN (9-20) mg/dL Creatinine (0.66-1.25) mg/dL Glucose (74-99) mg/dL POC Glucose (mg/dL) (70-110) mg/dL Plasma Lactic Acid Cy (0.7-2.0) mmol/L Calcium (8.4-10.2) mg/dL Total Bilirubin (0.2-1.3) mg/dL Creatine Kinase (55-170) U/L Troponin I (0.000-0.034) ng/mL C-Reactive Protein (<1.0) mg/dL Total Protein (6.3-8.2) g/dL Albumin (3.5-5.0) g/dL Procalcitonin (0.02-0.09) ng/mL Urine Protein 1+ H (Negative) Urine Blood Large H (Negative) Urine RBC 135 H (0-5) /hpf Urine WBC 6 H (0-5) /hpf Hyaline Casts 14 H (0-2) /lpf Urine Mucus Rare H (None) /hpf Microbiology - Last 24 Hours (Table) 03/10/22 16:22 Gram Stain - Preliminary Sputum Sputum Culture - Preliminary Assessment and Plan Assessment: Acute CHF exacerbation Bilateral pneumonia is suspected Acute kidney injury Chronic atrial fibrillation on Eliquis Fall at home without losing consciousness Multiple vertebral compression fractures Bilateral patellar leg edema Generalized weakness more in the legs than upper extremities but symmetrical Plan: Continue with Zithromax and ceftriaxone Continue with IV Lasix Continue with home Eliquis Several consultants on the case including cardiology, pulmonary and orthopedic team Labs and medication were reviewed.. Continue same treatment. Continue with symptomatic treatment. Resume home medication. Monitor labs and vitals. DVT and GI prophylaxis. Further recommendations as per clinical course of the patient DVT prophylaxis: Eliquis GI Prophylaxis: ppi PT/OT: Pending Prognosis is guarded
--- NOTE | 2022-03-11 11:14 | P.CNNES ---
History of Present Illness Consult date: 03/11/22 Requesting physician: Vicente Quinonez Reason for Consult: fall and weakness History of Present Illness: This is a 76-year-old gentleman with history of lower back pain, atrial fibrillation on eliquis, CHF who is admitted to the emergency department because of weakness. According to patient he is been having bilateral lower extremity weakness with recurrent falls for the past 3 days. He denies any numbness or tingling in the lower extremities any urinary or bowel problems. Denies any trauma to the lower back. He does have chronic lower back pain as well as has an old L1 compression fracture about 1 year ago. He stated that he is having worsening of edema in his lower extremity from his congestive heart failure and is progressively getting worse. For the falls he denies any loss of consciousness or head trauma. Some of the workup during this hospital visit consisted of: NCV is 112 and repeat is 115. CK level is 250 which is minimally slightly elevated. Her creatinine is 1.42 in the BUN is 54, initial low serum glucose is 103, calcium is 8.7, mag magnesium 2.0, phosphorus is 4.1, AST and ALT is within normal limits CT thorax and lumbar is reported as diffuse osseous demineralization limits evaluation for acute fracture. No obvious fracture line identified. Consider MRI for further evaluation if the repeat CAT as there remains clinical concern. L1 with retropulsion up to 5 mm could represent sequela of compression fracture attention on MRI. No evidence for sacral fracture. Bilateral sacroiliac joint degeneration. There is air space opacity seen throughout the long correlate for pneumonia. Cardiomegaly, pulmonary vascular congestion and pleural effusion correlate with serum BMP for heart failure Venous duplex is negative for DVT in both legs Review of Systems Review of system: The 12 point system was reviewed and apparent positive and negative per HPI. Past Medical History Past Medical History: Atrial Fibrillation, Heart Failure Additional Past Medical History / Comment(s): CHF, lower back pain History of Any Multi-Drug Resistant Organisms: None Reported Additional Past Surgical History / Comment(s): Hernia repair Smoking Status: Never smoker Medications and Allergies Home Medications Medication Instructions Recorded Confirmed Type Amiodarone [Cordarone] 200 mg PO Q12H 03/10/22 03/10/22 History Apixaban [Eliquis] 5 mg PO BID 03/10/22 03/10/22 History Furosemide [Lasix] 20 mg PO DAILY 03/10/22 03/10/22 History Metoprolol Succinate (ER) [Toprol 25 mg PO HS 03/10/22 03/10/22 History Xl] Allergies Allergy/AdvReac Type Severity Reaction Status Date / Time No Known Allergies Allergy Verified 03/10/22 15:16 Physical Examination - Vital Signs Vital Signs: Vital Signs Temp Pulse Pulse Pulse Resp BP BP 03/11/22 08:11 16 03/11/22 08:00 97 15 96/62 03/11/22 07:41 03/11/22 06:55 90 18 91/63 03/11/22 04:14 97.5 F L 91 16 87/57 03/11/22 02:00 92 19 91/65 03/10/22 23:30 97 17 90/67 03/10/22 23:19 94 17 03/10/22 22:58 97.3 F L 91 17 111/63 03/10/22 22:28 97 18 91/76 03/10/22 20:36 100 18 91/76 03/10/22 19:25 98 18 90/73 03/10/22 17:52 88 22 93/67 03/10/22 16:22 03/10/22 14:26 03/10/22 11:08 97.9 F 102 H 20 100/79 Pulse Ox 03/11/22 08:11 03/11/22 08:00 99 03/11/22 07:41 98 03/11/22 06:55 98 03/11/22 04:14 98 03/11/22 02:00 95 03/10/22 23:30 94 L 03/10/22 23:19 03/10/22 22:58 97 03/10/22 22:28 97 03/10/22 20:36 97 03/10/22 19:25 98 03/10/22 17:52 99 03/10/22 16:22 92 L 03/10/22 14:26 94 L 03/10/22 11:08 95 Intake and Output 03/10/22 03/11/22 03/11/22 22:59 06:59 14:59 Output Total 200 Balance -200 Output: Urine 200 Other: Voiding Method External Catheter Weight 63.503 kg 75.5 kg GENERAL: The patient is lying in bed and is not in acute distress. CHEST: The heart rate is regular rate rhythm. No murmurs to auscultation. Bilateral lower extremity edema 2+/ LUNG: Clear to auscultation bilaterally no wheezing noted throughout. Not labored breathing. ABDOMEN/GI: Bowel sounds present in all 4 quadrants. No tenderness to palpation throughout. INTEGUMENTARY: No erythema or discoloration noted. NEUROLOGICAL: Higher mental function: The patient is awake, alert, oriented to self, place and time. Patient is following commands. No aphasia and no neglect. Cranial nerves: The pupils are round, equal and reactive to light and accommodation. Visual gay are full to confrontation throughout. Extraocular movement is intact no nystagmus is noted. Facial sensation is normal to touch throughout. The facial strength is normal throughout. Hearing is normal bilaterally to hand rub. Tongue is midline and moved [id number] without any difficulty. No dysarthria is noted. Shoulder shrug is normal bilaterally. Motor: The strength is thighs are 5- on left while right is 4+ to 5-. Knees and ankles are 5-. Otherwise 5 over 5 throughout. Normal tone and bulk. Cerebellum: Normal finger to nose bilaterally. Sensation: Sensation is normal to touch throughout. Reflexes (right/left): 1+ throughout uppers while lowers are 0. Plantars are mute bilaterally. Results - Laboratory Findings CBC and BMP: 03/11/22 04:21 03/11/22 04:21 Abnormal Lab Findings: Abnormal Labs 03/10/22 03/10/22 03/10/22 11:46 11:46 12:27 RBC 3.87 L MCV 112.1 H MCH 37.1 H Plt Count 145 L Neutrophils # 8.6 H Lymphocytes # 0.5 L Macrocytosis Marked A PT 15.0 H INR 1.5 H D-Dimer 0.85 H Carbon Dioxide BUN Creatinine Glucose POC Glucose (mg/dL) Plasma Lactic Acid Cy Calcium Total Bilirubin Creatine Kinase Troponin I 0.119 H* C-Reactive Protein Total Protein Albumin Procalcitonin Urine Protein Urine Blood Urine RBC Urine WBC Hyaline Casts Urine Mucus 03/10/22 03/10/22 03/10/22 12:27 12:27 15:53 RBC MCV MCH Plt Count Neutrophils # Lymphocytes # Macrocytosis PT INR D-Dimer Carbon Dioxide 36 H BUN 54 H Creatinine 1.42 H Glucose 103 H POC Glucose (mg/dL) Plasma Lactic Acid Cy 2.2 H* Calcium Total Bilirubin 1.7 H Creatine Kinase 250 H Troponin I C-Reactive Protein 7.3 H Total Protein 6.1 L Albumin Procalcitonin Urine Protein Urine Blood Urine RBC Urine WBC Hyaline Casts Urine Mucus 03/10/22 03/10/22 03/10/22 15:53 15:53 15:53 RBC MCV MCH Plt Count Neutrophils # Lymphocytes # Macrocytosis PT INR D-Dimer Carbon Dioxide BUN Creatinine Glucose POC Glucose (mg/dL) Plasma Lactic Acid Cy 3.1 H* Calcium Total Bilirubin Creatine Kinase Troponin I 0.109 H* C-Reactive Protein Total Protein Albumin Procalcitonin 0.14 H Urine Protein Urine Blood Urine RBC Urine WBC Hyaline Casts Urine Mucus 03/10/22 03/10/22 03/10/22 17:47 19:02 22:49 RBC MCV MCH Plt Count Neutrophils # Lymphocytes # Macrocytosis PT INR D-Dimer Carbon Dioxide BUN Creatinine Glucose POC Glucose (mg/dL) 127 H Plasma Lactic Acid Cy 3.3 H* Calcium Total Bilirubin Creatine Kinase Troponin I 0.108 H* C-Reactive Protein Total Protein Albumin Procalcitonin Urine Protein Urine Blood Urine RBC Urine WBC Hyaline Casts Urine Mucus 03/10/22 03/11/22 03/11/22 23:32 04:21 04:21 RBC 3.79 L MCV 115.2 H MCH 36.2 H Plt Count Neutrophils # 7.9 H Lymphocytes # 0.5 L Macrocytosis Marked A PT INR D-Dimer Carbon Dioxide 34 H BUN 54 H Creatinine 1.38 H Glucose 109 H POC Glucose (mg/dL) Plasma Lactic Acid Cy 2.8 H* Calcium 8.2 L Total Bilirubin Creatine Kinase Troponin I C-Reactive Protein Total Protein 5.2 L Albumin 2.9 L Procalcitonin Urine Protein Urine Blood Urine RBC Urine WBC Hyaline Casts Urine Mucus 03/11/22 06:00 RBC MCV MCH Plt Count Neutrophils # Lymphocytes # Macrocytosis PT INR D-Dimer Carbon Dioxide BUN Creatinine Glucose POC Glucose (mg/dL) Plasma Lactic Acid Cy Calcium Total Bilirubin Creatine Kinase Troponin I C-Reactive Protein Total Protein Albumin Procalcitonin Urine Protein 1+ H Urine Blood Large H Urine RBC 135 H Urine WBC 6 H Hyaline Casts 14 H Urine Mucus Rare H Assessment and Plan Assessment: Recurrent falls with weakness in lowers legs: I feel more due to his edema from congestive heart failure that is progressively worsening. Did not appreciate f ocal weakness in lowers. Has L1 compression fracture notified for one year. Kidney insufficiency (unsure if acute, or chronic) Elevated troponin Elevated MCV. Unsure cause Atrial fibrillation on eliquis and amiodarone Hx of compression L1 fracture Congestive heart failure Plan: I ordered MRI Lumbar spine w/o and w/o STAT. Orthopedic team is on board. They stated no surgical intervention at this time. Ordered TSH, vitamin B12, folate for macocytosis. Is started on thiamine 100mg daily and folic acid 1mg daily by [facility]. PT and OT are consulted. Will defer the rest of medical management to primary team. The plan is discussed with patient and his nurse. Thank you for the consultation. Time with Patient: Greater than 30
[2022-03-11] MEDS: THIAMINE 100 MG TAB PO SCH (11:55)
[2022-03-11] MEDS: MULTIVITAMINS, THERA 1 EACH TAB PO SCH (11:55)
[2022-03-11] MEDS: FOLIC ACID 1 MG TAB PO SCH (11:55)
[2022-03-11 12:02] LABS: Appearance,Urine Clear (Clear); Bacteria,Urine Rare /hpf; Bilirubin,Urine Negative (Negative); Blood,Urine Large (Negative); Color,Urine Yellow; Glucose,Urine (UA) Negative (Negative); Hyaline Casts,Urine 7 /lpf (0-2); Ketones,Urine Negative (Negative); Leukocyte Esterase,Urine Negative (Negative); Mucus,Urine Rare /hpf; Nitrite,Urine Negative (Negative); Protein,Urine Trace (Negative); RBC,Urine 83 /hpf (0-5); Specific Gravity,Urine 1.019 (1.001-1.035); Squamous Epithelial Cell,Urine <1 /hpf (0-4); Urobilinogen,Urine <2.0 mg/dL (<2.0); WBC,Urine 3 /hpf (0-5)
[2022-03-11] MEDS: APIXABAN 5 MG TAB PO SCH ×2 (13:05→19:53)
[2022-03-11] MEDS: AMIODARONE 200 MG TAB PO SCH ×2 (13:25→19:53)
--- NOTE | 2022-03-11 13:49 | P.CRDCN ---
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 He has a chronic cough. He denies any prior history of chest discomfort. He has been told that he has a normal systolic function. He has been evaluated for possible cardioversion and was initiated on amiodarone about 6 weeks ago according to him. He denies any dizziness or palpitations. He has no clear PND or orthopnea. He has been anticoagulated. He has a prior history of smoking but stopped over 5 years ago. In the emergency room he was noted to have evidence of CHF with mild elevation of his troponin. His chest x-ray was consistent with pleural effusion. Medications: Toprol-XL 25 mg daily, Lasix 20 mg daily, Cordarone 200 mg twice a day, Eliquis 5 mg twice a day Review of Systems: Respiratory: He has progressive dyspnea, he has a chronic cough GI: No nausea or vomiting . No history of peptic ulcer disease. No recent GI bleed. : No hematuria or dysuria. He has a prior history of bladder cancer with bleeding that resolved Nervous System: No stroke or seizure. Physical Examination: 76-year-old male, alert oriented mildly dyspneic ,Blood pressure in the 90s, Heart rate 90 Head: Normocephalic. Eyes: Sclerae nonicteric. Neck: Good carotid upstroke, no bruit, no jugular venous distention. Lungs: Decreased breath sounds at the bases with scattered rhonchi Heart: Irregular rate and rhythm, S1-S2, no S3, no rub. Systolic murmur at the base. Abdomen: Soft nontender, positive bowel sounds no organomegaly. Extremities: 2+ edema, intact distal pulses. Labs: Hemoglobin 14.4, white blood cell 9.6, BUN 54, creatinine 1.42. Plasma lactic acid 2.2, troponin 0.119, 0.109 and 0.108. NT proBNP 13,200, pro-calcitonin 0.14. His BUN today is 54 with creatinine 1.38. Chest x-ray shows pleural effusion EKG: Atrial fibrillation with nonspecific ST-T wave changes in the right bundle branch block Impression: 1. CHF with preserved systolic function according to the patient 2. Chronic persistent atrial fibrillation, anticoagulated, patient is being evaluated for cardioversion according to him by his primary liquid waste treatment plant operator 3. Probable pneumonia 4. Abnormal renal functions of unknown duration Plan: 1. Continue IV diuretics 2. Obtain an echocardiogram with Doppler 3. Add Farxiga 4. Follow renal functions 5. Depending on his progress further recommendations will be made, thank you for this consult we will follow with you. Past Medical History Past Medical History: Atrial Fibrillation, Heart Failure Additional Past Medical History / Comment(s): CHF, lower back pain History of Any Multi-Drug Resistant Organisms: None Reported Additional Past Surgical History / Comment(s): Hernia repair Smoking Status: Never smoker Medications and Allergies Home Medications Medication Instructions Recorded Confirmed Type Amiodarone [Cordarone] 200 mg PO Q12H 03/10/22 03/10/22 History Apixaban [Eliquis] 5 mg PO BID 03/10/22 03/10/22 History Furosemide [Lasix] 20 mg PO DAILY 03/10/22 03/10/22 History Metoprolol Succinate (ER) [Toprol 25 mg PO HS 03/10/22 03/10/22 History Xl] Allergies Allergy/AdvReac Type Severity Reaction Status Date / Time No Known Allergies Allergy Verified 03/10/22 15:16 Physical Exam Vitals: Vital Signs Temp Pulse Pulse Pulse Resp BP BP 03/11/22 13:37 94/62 03/11/22 11:53 107 H 15 89/65 03/11/22 10:39 89/54 03/11/22 08:11 16 03/11/22 08:00 97 15 96/62 03/11/22 07:41 03/11/22 06:55 90 18 91/63 03/11/22 04:14 97.5 F L 91 16 87/57 03/11/22 02:00 92 19 91/65 03/10/22 23:30 97 17 90/67 03/10/22 23:19 94 17 03/10/22 22:58 97.3 F L 91 17 111/63 03/10/22 22:28 97 18 91/76 03/10/22 20:36 100 18 91/76 03/10/22 19:25 98 18 90/73 03/10/22 17:52 88 22 93/67 03/10/22 16:22 03/10/22 14:26 Pulse Ox 03/11/22 13:37 03/11/22 11:53 96 03/11/22 10:39 03/11/22 08:11 03/11/22 08:00 99 03/11/22 07:41 98 03/11/22 06:55 98 03/11/22 04:14 98 03/11/22 02:00 95 03/10/22 23:30 94 L 03/10/22 23:19 03/10/22 22:58 97 03/10/22 22:28 97 03/10/22 20:36 97 03/10/22 19:25 98 03/10/22 17:52 99 03/10/22 16:22 92 L 03/10/22 14:26 94 L Intake and Output 03/10/22 03/11/22 03/11/22 22:59 06:59 14:59 Output Total 200 200 Balance -200 -200 Output: Urine 200 Post Void Residual 200 Other: Voiding Method External Catheter Weight 63.503 kg 75.5 kg Results 03/11/22 04:21 03/11/22 04:21 Cardiac Enzymes 03/10/22 03/10/22 03/11/22 Range/Units 15:53 17:47 04:21 AST 48 (17-59) U/L Troponin I 0.109 H* 0.108 H* (0.000-0.034) ng/mL CBC 03/11/22 Range/Units 04:21 WBC 9.0 (3.8-10.6) k/uL RBC 3.79 L (4.30-5.90) m/uL Hgb 13.7 (13.0-17.5) gm/dL Hct 43.7 (39.0-53.0) % Plt Count 162 (150-450) k/uL Comprehensive Metabolic Panel 03/11/22 Range/Units 04:21 Sodium 141 (137-145) mmol/L Potassium 4.9 (3.5-5.1) mmol/L Chloride 104 (98-107) mmol/L Carbon Dioxide 34 H (22-30) mmol/L BUN 54 H (9-20) mg/dL Creatinine 1.38 H (0.66-1.25) mg/dL Glucose 109 H (74-99) mg/dL Calcium 8.2 L (8.4-10.2) mg/dL AST 48 (17-59) U/L ALT 31 (4-49) U/L Alkaline Phosphatase 99 (38-126) U/L Total Protein 5.2 L (6.3-8.2) g/dL Albumin 2.9 L (3.5-5.0) g/dL Current Medications Generic Name Dose Route Start Last Admin Trade Name Freq PRN Reason Stop Dose Admin Acetaminophen 650 mg 03/10/22 14:57 Acetaminophen Tab 325 Mg Tab PO Q6HR PRN Mild Pain or Fever > 100.5 Hydrocodone Bitart/Acetaminophen 1 each 03/10/22 14:57 Hydrocodone/Apap 5-325mg 1 Each Tab PO Q4HR PRN Moderate Pain (Scale 4 to 6) Amiodarone HCl 200 mg 03/10/22 21:00 03/11/22 13:25 Amiodarone 200 Mg Tab PO 200 mg Q12HR INDIRA Administration Apixaban 5 mg 03/10/22 21:00 03/11/22 13:05 Apixaban 5 Mg Tab PO 5 mg BID INDIRA Administration Protocol Azithromycin 500 mg 03/11/22 09:00 03/11/22 08:07 Azithromycin 500 Mg Tab PO 03/12/22 09:01 500 mg DAILY INDIRA Administration Protocol Folic Acid 1 mg 03/11/22 12:00 03/11/22 11:55 Folic Acid 1 Mg Tab PO 1 mg DAILY@1200 INDIRA Administration Furosemide 20 mg 03/10/22 21:00 03/10/22 21:46 Furosemide 10 Mg/Ml 2 Ml Vial IV Not Given Q12HR INDIRA Ceftriaxone Sodium 2 gm/ 50 mls @ 100 mls/hr 03/10/22 16:00 03/10/22 16:26 Sodium Chloride IVPB 03/13/22 16:29 100 mls/hr Q24H INDIRA Administration Protocol Lorazepam 0.5 mg 03/10/22 16:00 Lorazepam 0.5 Mg Tab PO Q8HR PRN Anxiety Metoprolol Succinate 25 mg 03/10/22 21:00 03/10/22 21:48 Metoprolol Succinate (Er) 25 Mg Tab.Er.24h PO Not Given HS INDIRA Miscellaneous Information 1 each 03/10/22 14:01 Pneumonia Protocol Utilized 1 Each Misc PO ONCE PRN Per Protocol Multivitamins 1 each 03/11/22 12:00 03/11/22 11:55 Multivitamins, Thera 1 Each Tab PO 1 each DAILY@1200 INDIRA Administration Naloxone HCl 0.2 mg 03/10/22 14:57 Naloxone 0.4 Mg/Ml 1 Ml Vial IV Q2M PRN Opioid Reversal Ondansetron HCl 4 mg 03/10/22 14:57 Ondansetron 4 Mg/2 Ml Vial IVP Q8HR PRN Nausea And Vomiting Pantoprazole Sodium 40 mg 03/11/22 07:30 03/11/22 08:07 Pantoprazole 40 Mg Tablet PO 40 mg [id number] INDIRA Administration Thiamine HCl 100 mg 03/11/22 12:00 03/11/22 11:55 Thiamine 100 Mg Tab PO 100 mg DAILY@1200 INDIRA Administration Intake and Output 03/10/22 03/11/22 03/11/22 22:59 06:59 14:59 Output Total 200 200 Balance -200 -200 Output: Urine 200 Post Void Residual 200 Other: Voiding Method External Catheter Weight 63.503 kg 75.5 kg 03/11/22 04:21 03/11/22 04:21
--- NOTE | 2022-03-11 14:01 | P.CNPUL ---
History of Present Illness Consult date: 03/10/22 Reason for consult: pneumonia History of present illness: 76-year-old male patient presented to the ED for generalized weakness. His condition progresses been getting worse in his legs got weak when he was unable to carry himself. No reported falls. He arrived to the emergency department with the patient was found to be hypoxic with a pulse ox of 70%, on room air, and he was placed on 2 L of O2 nasal cannula. Denies having any form of chronic lung disease. He states that he has underlying congestion heart failure. He has noted increased lower extremity edema and. Also weight gain and cough. In the emergency, he was afebrile, hemodynamically stable, the lesion was at 9.6 hemoglobin was 14.4 with a platelet count of 149, sodium was 142 with a BUN of 54 and a creatinine was 1.4. Coagulation profile was showing INR of 1.5 with a PT of 15 and a PTT of 27 and a d-dimer of 0.8. Influenza screen was negative. RSV was negative. Covid 19 testing was negative. Lactic acid level was at 2.2. Calcium was 8.7. LFTs were normal. CPK was 250. ProBNP level was 13,200. Initial troponin was 0.119. The EKG was consistent with chronic atrial fibrillation. He did have a mild tachycardia. He also had a right bundle- branch block pattern and Q waves over the anterior septal leads.the chest x-ray was consistent with small left-sided pleural effusion, COPD, increased interstitial markings bilaterally Review of Systems All systems: negative (worsening shortness of breath, generalized weakness, lower extremity edema) Past Medical History Past Medical History: Atrial Fibrillation, Heart Failure Additional Past Medical History / Comment(s): CHF, lower back pain Additional Past Surgical History / Comment(s): Hernia repair Medications and Allergies Home Medications Medication Instructions Recorded Confirmed Type Amiodarone [Cordarone] 200 mg PO Q12H 03/10/22 03/10/22 History Apixaban [Eliquis] 5 mg PO BID 03/10/22 03/10/22 History Furosemide [Lasix] 20 mg PO DAILY 03/10/22 03/10/22 History Metoprolol Succinate (ER) [Toprol 25 mg PO HS 03/10/22 03/10/22 History Xl] Allergies Allergy/AdvReac Type Severity Reaction Status Date / Time No Known Allergies Allergy Verified 03/10/22 15:16 Physical Exam Vitals: Vital Signs Temp Pulse Resp BP Pulse Ox 03/10/22 14:26 94 L 03/10/22 11:08 97.9 F 102 H 20 100/79 95 Intake and Output 03/10/22 03/10/22 03/10/22 06:59 14:59 22:59 Other: Weight 63.503 kg General appearance: alert, in no apparent distress Head exam: Present: atraumatic, normocephalic, normal inspection Respiratory exam: Present: rhonchi, decreased breath sounds, prolonged expiratory Cardiovascular Exam: Present: regular rate, normal rhythm, normal heart sounds GI/Abdominal exam: Present: soft, normal bowel sounds. Absent: distended, tenderness Extremities exam: Present: other (3+ pitting edema bilaterally) Neurological exam: Present: alert, oriented X3, CN II-XII intact Psychiatric exam: Present: normal affect, normal mood Skin exam: Present: warm, dry, intact, normal color. Absent: rash Results - Laboratory Findings CBC and BMP: 03/11/22 04:21 03/11/22 04:21 PT/INR, D-dimer PT 15.0 sec (9.0-12.0) H 03/10/22 11:46 INR 1.5 (<1.2) H 03/10/22 11:46 D-Dimer 0.85 mg/L FEU (<0.60) H 03/10/22 11:46 Abnormal lab findings: Abnormal Labs 03/10/22 03/10/22 03/10/22 11:46 11:46 12:27 RBC 3.87 L MCV 112.1 H MCH 37.1 H Plt Count 145 L Neutrophils # 8.6 H Lymphocytes # 0.5 L Macrocytosis Marked A PT 15.0 H INR 1.5 H D-Dimer 0.85 H Carbon Dioxide BUN Creatinine Glucose Plasma Lactic Acid Cy Total Bilirubin Creatine Kinase Troponin I 0.119 H* Total Protein 03/10/22 03/10/22 12:27 12:27 RBC MCV MCH Plt Count Neutrophils # Lymphocytes # Macrocytosis PT INR D-Dimer Carbon Dioxide 36 H BUN 54 H Creatinine 1.42 H Glucose 103 H Plasma Lactic Acid Cy 2.2 H* Total Bilirubin 1.7 H Creatine Kinase 250 H Troponin I Total Protein 6.1 L - Diagnostic Findings Chest x-ray: image reviewed Assessment and Plan Plan: Acute exacerbation of chronic CHF. The patient is presenting with worsening shortness of breath, increased edema, elevated proBNP level and a chest x-ray is consistent with CHF with small left-sided pleural effusion and interstitial markings bilaterally Acute hypoxic respiratory failure currently on 2 L of O2 nasal cannula Chronic atrial fibrillation, maintained on accommodation of metoprolol and am iodarone in addition to that the patient has been on long-term anticoagulants with Eliquis. Chronic stage III kidney disease Plan Titrate FiO2 to maintain saturation above 90% Continue IV Lasix Resume all medications including anticoagulants Check pro calcitonin level No need for antibiotic therapy Cardiology consultation Echocardiogram
[2022-03-11] MEDS: FUROSEMIDE 10 MG/ML 2 ML VIAL IV SCH (14:28)
[2022-03-11] MEDS: DAPAGLIFLOZIN PROPANEDIOL 10 MG TABLET PO SCH (15:22)
--- NOTE | 2022-03-11 17:21 | P.PN ---
Subjective Progress Note Date: 03/11/22 76-year-old male patient presented to the ED for generalized weakness. His condition progresses been getting worse in his legs got weak when he was unable to carry himself. No reported falls. He arrived to the emergency department with the patient was found to be hypoxic with a pulse ox of 70%, on room air, and he was placed on 2 L of O2 nasal cannula. Denies having any form of chronic lung disease. He states that he has underlying congestion heart failure. He has noted increased lower extremity edema and. Also weight gain and cough. In the emergency, he was afebrile, hemodynamically stable, the lesion was at 9.6 hemoglobin was 14.4 with a platelet count of 149, sodium was 142 with a BUN of 54 and a creatinine was 1.4. Coagulation profile was showing INR of 1.5 with a PT of 15 and a PTT of 27 and a d-dimer of 0.8. Influenza screen was negative. RSV was negative. Covid 19 testing was negative. Lactic acid level was at 2.2. Calcium was 8.7. LFTs were normal. CPK was 250. ProBNP level was 13,200. Initial troponin was 0.119. The EKG was consistent with chronic atrial fibril lation. He did have a mild tachycardia. He also had a right bundle-branch block pattern and Q waves over the anterior septal leads.the chest x-ray was consistent with small left-sided pleural effusion, COPD, increased interstitial markings bilaterally On 03/11/2022, the patient is being seen for a follow-up. The patient remains on diuretics and patient is currently on Lasix 0 mg IV every 12 hours. Patient is also receiving a, his Rocephin and Zithromax. The patient had a fall and the CAT scan of the lumbosacral spine was done and showed some minimal multiple compression fractures of the level of L1. MRI of the spine is also to follow. Otherwise, the patient is doing well. No specific complaints for now. The patient remains on 3 L O2 nasal cannula. Cardiac rhythm is irregular consistent with atrial fibrillation.Repeat labs from today shows a white second of 9.0 with a hemoglobin 15.7, sodium is at 141, BUN is 64 with a creatinine 1.38. Objective - Vital Signs Vital signs: Vital Signs Temp 97.5 F L 03/11/22 04:14 Pulse 107 H 03/11/22 11:53 Resp 15 03/11/22 11:53 BP 94/62 03/11/22 13:37 Pulse Ox 96 03/11/22 11:53 FiO2 Intake & Output 03/10/22 03/11/22 03/11/22 18:59 06:59 18:59 Output Total 200 200 Balance -200 -200 Weight 63.503 kg 75.5 kg Output: Urine 200 Post Void Residual 200 Other: Voiding Method External Catheter - Exam General appearance: alert, in no apparent distress, currently on 3 L oxygen nasal cannula Head exam: Present: atraumatic, normocephalic, normal inspection Respiratory exam: Present: rhonchi, decreased breath sounds, prolonged expiratory Cardiovascular Exam: Present: regular rate, normal rhythm, normal heart sounds GI/Abdominal exam: Present: soft, normal bowel sounds. Absent: distended, tenderness Extremities exam: Present: other (3+ pitting edema bilaterally) Neurological exam: Present: alert, oriented X3, CN II-XII intact Psychiatric exam: Present: normal affect, normal mood Skin exam: Present: warm, dry, intact, normal color. Absent: rash - Labs CBC & Chem 7: 03/11/22 04:21 03/11/22 04:21 Labs: Abnormal Lab Results - Last 24 Hours (Table) 03/10/22 03/10/22 03/10/22 Range/Units 15:53 17:47 19:02 RBC (4.30-5.90) m/uL MCV (80.0-100.0) fL MCH (25.0-35.0) pg Neutrophils # (1.3-7.7) k/uL Lymphocytes # (1.0-4.8) k/uL Macrocytosis Carbon Dioxide (22-30) mmol/L BUN (9-20) mg/dL Creatinine (0.66-1.25) mg/dL Glucose (74-99) mg/dL POC Glucose (mg/dL) (70-110) mg/dL Plasma Lactic Acid Cy 3.3 H* (0.7-2.0) mmol/L Calcium (8.4-10.2) mg/dL Troponin I 0.108 H* (0.000-0.034) ng/mL Total Protein (6.3-8.2) g/dL Albumin (3.5-5.0) g/dL Procalcitonin 0.14 H (0.02-0.09) ng/mL Urine Protein (Negative) Urine Blood (Negative) Urine RBC (0-5) /hpf Urine WBC (0-5) /hpf Urine Bacteria (None) /hpf Hyaline Casts (0-2) /lpf Urine Mucus (None) /hpf 03/10/22 03/10/22 03/11/22 Range/Units 22:49 23:32 04:21 RBC 3.79 L (4.30-5.90) m/uL MCV 115.2 H (80.0-100.0) fL MCH 36.2 H (25.0-35.0) pg Neutrophils # 7.9 H (1.3-7.7) k/uL Lymphocytes # 0.5 L (1.0-4.8) k/uL Macrocytosis Marked A Carbon Dioxide (22-30) mmol/L BUN (9-20) mg/dL Creatinine (0.66-1.25) mg/dL Glucose (74-99) mg/dL POC Glucose (mg/dL) 127 H (70-110) mg/dL Plasma Lactic Acid Cy 2.8 H* (0.7-2.0) mmol/L Calcium (8.4-10.2) mg/dL Troponin I (0.000-0.034) ng/mL Total Protein (6.3-8.2) g/dL Albumin (3.5-5.0) g/dL Procalcitonin (0.02-0.09) ng/mL Urine Protein (Negative) Urine Blood (Negative) Urine RBC (0-5) /hpf Urine WBC (0-5) /hpf Urine Bacteria (None) /hpf Hyaline Casts (0-2) /lpf Urine Mucus (None) /hpf 03/11/22 03/11/22 03/11/22 Range/Units 04:21 06:00 11:49 RBC (4.30-5.90) m/uL MCV (80.0-100.0) fL MCH (25.0-35.0) pg Neutrophils # (1.3-7.7) k/uL Lymphocytes # (1.0-4.8) k/uL Macrocytosis Carbon Dioxide 34 H (22-30) mmol/L BUN 54 H (9-20) mg/dL Creatinine 1.38 H (0.66-1.25) mg/dL Glucose 109 H (74-99) mg/dL POC Glucose (mg/dL) (70-110) mg/dL Plasma Lactic Acid Cy (0.7-2.0) mmol/L Calcium 8.2 L (8.4-10.2) mg/dL Troponin I (0.000-0.034) ng/mL Total Protein 5.2 L (6.3-8.2) g/dL Albumin 2.9 L (3.5-5.0) g/dL Procalcitonin (0.02-0.09) ng/mL Urine Protein 1+ H Trace H (Negative) Urine Blood Large H Large H (Negative) Urine RBC 135 H 83 H (0-5) /hpf Urine WBC 6 H (0-5) /hpf Urine Bacteria Rare H (None) /hpf Hyaline Casts 14 H 7 H (0-2) /lpf Urine Mucus Rare H Rare H (None) /hpf Microbiology - Last 24 Hours (Table) 03/10/22 16:22 Gram Stain - Preliminary Sputum Sputum Culture - Preliminary Assessment and Plan Plan: Acute exacerbation of chronic CHF. The patient is presenting with worsening shortness of breath, increased edema, elevated proBNP level and a chest x-ray is consistent with CHF with small left-sided pleural effusion and interstitial markings bilaterally Acute hypoxic respiratory failure currently on 2 L of O2 nasal cannula Chronic atrial fibrillation, maintained on accommodation of metoprolol and amiodarone in addition to that the patient has been on long-term anticoagulants with Eliquis. Chronic stage III kidney disease Plan Titrate FiO2 to maintain saturation above 90% Continue IV Lasix, currently on Lasix 40 mg IV every 12 hours Resume all medications including anticoagulants Check pro calcitonin level was low at 0.14 No need for antibiotic therapy Cardiology consultation Echocardiogram is still pending for now CAT scan of the lumbar sacral spine was noted and MRIs is in progress
[2022-03-11] MEDS: FUROSEMIDE 10 MG/ML 4 ML VIAL IV SCH (19:51)
[2022-03-11] MEDS: METOPROLOL SUCCINATE (ER) 25 MG TAB.ER.24H PO SCH (19:53)
[2022-03-12] MEDS: PANTOPRAZOLE 40 MG TABLET PO SCH (04:47)
[2022-03-12] MEDS: DAPAGLIFLOZIN PROPANEDIOL 10 MG TABLET PO SCH (08:38)
[2022-03-12] MEDS: FUROSEMIDE 10 MG/ML 4 ML VIAL IV SCH ×2 (08:38→21:13)
[2022-03-12] MEDS: AZITHROMYCIN 500 MG TAB PO SCH (08:38)
[2022-03-12] MEDS: APIXABAN 5 MG TAB PO SCH ×2 (08:38→21:13)
[2022-03-12] MEDS: AMIODARONE 200 MG TAB PO SCH ×2 (08:38→21:13)
[2022-03-12 10:38] LABS: Basophils % (A) 0 %; Eosinophils % (A) 0 %; HCT 42.4 % (39.0-53.0); Hypochromasia Marked; Lymphocytes # (A) 0.4 k/uL (1.0-4.8); Lymphocytes % (A) 4 %; MCH 36.2 pg (25.0-35.0); MCHC 30.6 g/dL (31.0-37.0); MCV 118.3 fL (80.0-100.0); Macrocytosis Marked; Mean Platelet Volume 9.4; Monocytes # (A) 0.5 k/uL (0-1.0); Monocytes % (A) 5 %; Neutrophils # (A) 8.1 k/uL (1.3-7.7); Neutrophils % (A) 88 %; Platelet Count 148 k/uL (150-450); RBC 3.58 m/uL (4.30-5.90); RDW 15.1 % (11.5-15.5); WBC 9.2 k/uL (3.8-10.6)
[2022-03-12 10:49] LABS: Calcium 7.9 mg/dL (8.4-10.2); Potassium 4.3 mmol/L (3.5-5.1)
--- NOTE | 2022-03-12 11:07 | P.PN ---
Subjective This is a pleasant 76 years old male with multiple problems presents with respiratory symptoms, mainly with shortness of breath suspicious for acute CHF exacerbation, known ejection fraction unknown Also there is a suspicion of bilateral pneumonia. Patient has been feeling weakness for about several days and fell twice at home. For the last 3 days The patient feels generally weak however he denies specific weakness or asymmetric weakness. It looks like secondary to severe leg edema about 3+ He denies chest pain or abdominal pain. However per MRI of the thoracic and lumbar spine there's multiple levels of compression fractures. Today he thinks that his dyspnea is better. He is mildly tachypneic. He has full mentation. Patient is not on home oxygen His PCP is Dr. holder He has external urinary catheter Vitas looks stable, he is saturating 99% on 3 L, blood pressure on the low side 96/62 Creatinine improving slightly 1.4-1.3. 03/12/2022 Patient with mild tachypnea, no significant dyspnea, he remains on IV Lasix 40 mg twice daily and has good urine output however her blood pressure on the low side 82/59 1 and, metoprolol was held yesterday, creatinine went up 1.3-1.6. We added midodrine 5 mg 3 times a day) monitoring. Patient finish his Zithromax. Tomorrow's last dose of ceftriaxone. No need for further antibiotics after that per pulmonary team. Patient Is also on Eliquis blood thinner for A. fib, platelet count 148, hemoglobin normal. MRI of the lumbar spine for by leg weakness is pending, patient leg weakness mostly likely secondary to his significant leg edema 3+ Patient has external urine catheter Objective - Vital Signs Vital signs: Vital Signs Temp 97.5 F L 03/11/22 04:14 Pulse 92 03/12/22 08:33 Resp 17 03/12/22 08:33 BP 82/59 03/12/22 09:39 Pulse Ox 95 03/12/22 08:51 FiO2 Intake & Output 03/11/22 03/12/22 03/12/22 18:59 06:59 18:59 Intake Total 900 485 Output Total 600 1300 Balance 300 -815 Weight 76 kg Intake: Oral 900 485 Output: Urine 400 1300 Post Void Residual 200 Other: Voiding Method External Catheter External Catheter External Catheter - Exam -GENERAL: The patient is alert and oriented x3, not in any acute distress. Well developed, well nourished. Generally tired and weak HEENT: Pupils are round and equally reacting to light. EOMI. No scleral icterus. No conjunctival pallor. Normocephalic, atraumatic. No pharyngeal erythema. No thyromegaly. CARDIOVASCULAR: S1 and S2 present. No murmurs, rubs, or gallops. -PULMONARY: Chest is clear to auscultation, no wheezing . Mildly tachypneic and bilateral medication ABDOMEN: Soft, nontender, nondistended, normoactive bowel sounds. No palpable organomegaly. MUSCULOSKELETAL: No joint swelling or deformity. -EXTREMITIES: No cyanosis, clubbing, .bilateral pitting leg l edema. NEUROLOGICAL: Gross neurological examination did not reveal any focal deficits. SKIN: No rashes. no petechiae. - Labs CBC & Chem 7: 03/12/22 10:08 03/12/22 10:08 Labs: Abnormal Lab Results - Last 24 Hours (Table) 03/11/22 03/12/22 03/12/22 Range/Units 11:49 10:08 10:08 RBC 3.58 L (4.30-5.90) m/uL MCV 118.3 H (80.0-100.0) fL MCH 36.2 H (25.0-35.0) pg MCHC 30.6 L (31.0-37.0) g/dL Plt Count 148 L (150-450) k/uL Neutrophils # 8.1 H (1.3-7.7) k/uL Lymphocytes # 0.4 L (1.0-4.8) k/uL Macrocytosis Marked A Carbon Dioxide 36 H (22-30) mmol/L BUN 55 H (9-20) mg/dL Creatinine 1.63 H (0.66-1.25) mg/dL Calcium 7.9 L (8.4-10.2) mg/dL Urine Protein Trace H (Negative) Urine Blood Large H (Negative) Urine RBC 83 H (0-5) /hpf Urine Bacteria Rare H (None) /hpf Hyaline Casts 7 H (0-2) /lpf Urine Mucus Rare H (None) /hpf Microbiology - Last 24 Hours (Table) 03/10/22 16:22 Gram Stain - Final Sputum Sputum Culture - Final 03/10/22 16:02 Blood Culture - Preliminary Blood No Growth after 24 hours 03/10/22 15:53 Blood Culture - Preliminary Blood No Growth after 24 hours Assessment and Plan Assessment: Acute CHF exacerbation Bilateral pneumonia is suspected Acute kidney injury Chronic atrial fibrillation on Eliquis Fall at home without losing consciousness Multiple vertebral compression fractures Bilateral patellar leg edema Generalized weakness more in the legs than upper extremities but symmetrical Plan: Continue with Zithromax and ceftriaxone Continue with IV Lasix Continue with home Eliquis Several consultants on the case including cardiology, pulmonary and orthopedic team Labs and medication were reviewed.. Continue same treatment. Continue with symptomatic treatment. Resume home medication. Monitor labs and vitals. DVT and GI prophylaxis. Further recommendations as per clinical course of the maria de jesus ent DVT prophylaxis: Eliquis GI Prophylaxis: ppi PT/OT: Pending Prognosis is guarded
[2022-03-12] MEDS: THIAMINE 100 MG TAB PO SCH (11:30)
[2022-03-12] MEDS: FOLIC ACID 1 MG TAB PO SCH (11:30)
[2022-03-12] MEDS: MIDODRINE 5 MG TAB PO SCH ×3 (11:30→16:54)
[2022-03-12] MEDS: MULTIVITAMINS, THERA 1 EACH TAB PO SCH (11:30)
--- NOTE | 2022-03-12 11:38 | P.PN ---
Subjective Progress Note Date: 03/12/22 The patient is seen at bedside and continues to feels about the same. Objective - Vital Signs Vital signs: Vital Signs Temp 97.5 F L 03/11/22 04:14 Pulse 86 03/12/22 11:28 Resp 15 03/12/22 11:28 BP 85/57 03/12/22 11:28 Pulse Ox 98 03/12/22 11:28 FiO2 Intake & Output 03/11/22 03/12/22 03/12/22 18:59 06:59 18:59 Intake Total 900 485 540 Output Total 600 1300 650 Balance 300 -815 -110 Weight 76 kg Intake: Oral 900 485 540 Output: Urine 400 1300 650 Post Void Residual 200 Other: Voiding Method External Catheter External Catheter External Catheter - Exam GENERAL: The patient is lying in bed and is not in acute distress. CHEST: Bilateral lower extremity edema 2+/ INTEGUMENTARY: No erythema or discoloration noted. NEUROLOGICAL: Higher mental function: The patient is awake, alert, oriented to self, place and time. Patient is following commands. No aphasia and no neglect. Cranial nerves: The pupils are round, equal and reactive to light and accommodation. Visual gay are full to confrontation throughout. Extraocular movement is intact no nystagmus is noted. Facial sensation is normal to touch throughout. The facial strength is normal throughout. Hearing is normal bilaterally to hand rub. Tongue is midline and moved [id number] without any difficulty. No dysarthria is noted. Shoulder shrug is normal bilaterally. Motor: The strength is thighs are 5- on left while right is 4+ to 5-. Knees and ankles are 5-. Otherwise 5 over 5 throughout. Normal tone and bulk. Cerebellum: Normal finger to nose bilaterally. Sensation: Sensation is normal to touch throughout. Reflexes (right/left): 1+ throughout uppers while lowers are 0. Plantars are mute bilaterally. Some of the workup during this hospital visit consisted of: MCV is 112 and repeat is 115. CK level is 250 which is minimally slightly elevated. Her creatinine is 1.42 in the BUN is 54, initial low serum glucose is 103, calcium is 8.7, mag magnesium 2.0, phosphorus is 4.1, AST and ALT is within normal limits CT thorax and lumbar is reported as diffuse osseous demineralization limits evaluation for acute fracture. No obvious fracture line identified. Consider MRI for further evaluation if the repeat CAT as there remains clinical concern. L1 with retropulsion up to 5 mm could represent sequela of compression fracture attention on MRI. No evidence for sacral fracture. Bilateral sacroiliac joint degeneration. There is air space opacity seen throughout the long correlate for pneumonia. Cardiomegaly, pulmonary vascular congestion and pleural effusion correlate with serum BMP for heart failure Venous duplex is negative for DVT in both legs Vitamin B12 354 Serum folate is 8.90 TSH: 26.30 - Labs CBC & Chem 7: 03/12/22 10:08 03/12/22 10:08 Labs: Abnormal Lab Results - Last 24 Hours (Table) 03/11/22 03/12/22 03/12/22 Range/Units 11:49 10:08 10:08 RBC 3.58 L (4.30-5.90) m/uL MCV 118.3 H (80.0-100.0) fL MCH 36.2 H (25.0-35.0) pg MCHC 30.6 L (31.0-37.0) g/dL Plt Count 148 L (150-450) k/uL Neutrophils # 8.1 H (1.3-7.7) k/uL Lymphocytes # 0.4 L (1.0-4.8) k/uL Macrocytosis Marked A Carbon Dioxide 36 H (22-30) mmol/L BUN 55 H (9-20) mg/dL Creatinine 1.63 H (0.66-1.25) mg/dL Calcium 7.9 L (8.4-10.2) mg/dL Urine Protein Trace H (Negative) Urine Blood Large H (Negative) Urine RBC 83 H (0-5) /hpf Urine Bacteria Rare H (None) /hpf Hyaline Casts 7 H (0-2) /lpf Urine Mucus Rare H (None) /hpf Microbiology - Last 24 Hours (Table) 03/10/22 16:22 Gram Stain - Final Sputum Sputum Culture - Final 03/10/22 16:02 Blood Culture - Preliminary Blood No Growth after 24 hours 03/10/22 15:53 Blood Culture - Preliminary Blood No Growth after 24 hours Assessment and Plan Assessment: Recurrent falls with weakness in lowers legs: I feel more due to his edema from congestive heart failure that is progressively worsening. Did not appreciate focal weakness in lowers. Has L1 compression fracture notified for one year. Kidney insufficiency (unsure if acute, or chronic) Elevated troponin Elevated MCV but no B12 or folate deficiency Atrial fibrillation on eliquis and amiodarone Has slight low normal B12 Hx of compression L1 fracture Congestive heart failure Plan: Pending MRI Lumbar spine w/o and w/o STAT on 03/11/22. Orthopedic team is on board. They stated no surgical intervention at this time. I started patient on Vitamin B12 1000mcg daily. Is started on thiamine 100mg daily and folic acid 1mg daily by primary team. PT and OT are consulted. Will defer the rest of medical management to primary team. The plan is discussed with patient. Time with Patient: Less than 30
--- NOTE | 2022-03-12 13:39 | P.PN ---
Subjective Progress Note Date: 03/12/22 Pt s/e. Here for CHF. Had a fall with weakness in LE. He states doing better today. Denies any other issues. no bowel or bladder issues. No perineal numbness/tingling. Objective - Vital Signs Vital signs: Vital Signs Temp 97.5 F L 03/11/22 04:14 Pulse 86 03/12/22 11:28 Resp 15 03/12/22 11:28 BP 85/57 03/12/22 11:28 Pulse Ox 98 03/12/22 11:28 FiO2 Intake & Output 03/11/22 03/12/22 03/12/22 18:59 06:59 18:59 Intake Total 900 485 540 Output Total 600 1300 650 Balance 300 -815 -110 Weight 76 kg Intake: Oral 900 485 540 Output: Urine 400 1300 650 Post Void Residual 200 Other: Voiding Method External Catheter External Catheter External Catheter - Exam TTP of the T and L spine midline moderate. 4+/5 UE and LE motor, generalized weakness SILT L2-S1, C5-T1 Neg hoffmans Neg clonus Neg babinski Distal pulses intact Edema in LE, moderate 1+ - Labs CBC & Chem 7: 03/12/22 10:08 03/12/22 10:08 Labs: Abnormal Lab Results - Last 24 Hours (Table) 03/12/22 03/12/22 Range/Units 10:08 10:08 RBC 3.58 L (4.30-5.90) m/uL MCV 118.3 H (80.0-100.0) fL MCH 36.2 H (25.0-35.0) pg MCHC 30.6 L (31.0-37.0) g/dL Plt Count 148 L (150-450) k/uL Neutrophils # 8.1 H (1.3-7.7) k/uL Lymphocytes # 0.4 L (1.0-4.8) k/uL Macrocytosis Marked A Carbon Dioxide 36 H (22-30) mmol/L BUN 55 H (9-20) mg/dL Creatinine 1.63 H (0.66-1.25) mg/dL Calcium 7.9 L (8.4-10.2) mg/dL Microbiology - Last 24 Hours (Table) 03/10/22 16:22 Gram Stain - Final Sputum Sputum Culture - Final 03/10/22 16:02 Blood Culture - Preliminary Blood No Growth after 24 hours 03/10/22 15:53 Blood Culture - Preliminary Blood No Growth after 24 hours Assessment and Plan Assessment: Multiple VCF CHF Weakness, generalized Plan: -No emergent orthopedic spine surgery intervention at this time -Brace for comfort and pain when up -Mgt per primary
--- NOTE | 2022-03-12 13:50 | P.PN ---
Subjective Progress Note Date: 03/12/22 76-year-old male patient presented to the ED for generalized weakness. His condition progresses been getting worse in his legs got weak when he was unable to carry himself. No reported falls. He arrived to the emergency department with the patient was found to be hypoxic with a pulse ox of 70%, on room air, and he was placed on 2 L of O2 nasal cannula. Denies having any form of chronic lung disease. He states that he has underlying congestion heart failure. He has noted increased lower extremity edema and. Also weight gain and cough. In the emergency, he was afebrile, hemodynamically stable, the lesion was at 9.6 hemoglobin was 14.4 with a platelet count of 149, sodium was 142 with a BUN of 54 and a creatinine was 1.4. Coagulation profile was showing INR of 1.5 with a PT of 15 and a PTT of 27 and a d-dimer of 0.8. Influenza screen was negative. RSV was negative. Covid 19 testing was negative. Lactic acid level was at 2.2. Calcium was 8.7. LFTs were normal. CPK was 250. ProBNP level was 13,200. Initial troponin was 0.119. The EKG was consistent with chronic atrial fibril lation. He did have a mild tachycardia. He also had a right bundle-branch block pattern and Q waves over the anterior septal leads.the chest x-ray was consistent with small left-sided pleural effusion, COPD, increased interstitial markings bilaterally On 03/11/2022, the patient is being seen for a follow-up. The patient remains on diuretics and patient is currently on Lasix 0 mg IV every 12 hours. Patient is also receiving a, his Rocephin and Zithromax. The patient had a fall and the CAT scan of the lumbosacral spine was done and showed some minimal multiple compression fractures of the level of L1. MRI of the spine is also to follow. Otherwise, the patient is doing well. No specific complaints for now. The patient remains on 3 L O2 nasal cannula. Cardiac rhythm is irregular consistent with atrial fibrillation.Repeat labs from today shows a white second of 9.0 with a hemoglobin 15.7, sodium is at 141, BUN is 64 with a creatinine 1.38. 03/12/2022, the patient on 4 L of oxygen nasal cannula and the patient continues to be on diuretics with IV Lasix with a negative fluid balance. Echocardiogram is still pending for now. Creatinine is up to 1.6 with a BUN of 55 and a sodium level is at 137. The white cycles done 0.2 with a hemoglobin of 15. The patient remains also on accommodation of Rocephin and Zithromax. Less congested compared to yesterday. The patient was seen by spine surgery for vertebral compression fracture. There was no need for any emergent orthopedic intervention this point in time. The brace was recommended. Objective - Vital Signs Vital signs: Vital Signs Temp 97.5 F L 03/11/22 04:14 Pulse 102 H 03/12/22 13:36 Resp 15 03/12/22 11:28 BP 92/60 03/12/22 13:36 Pulse Ox 92 L 03/12/22 13:36 FiO2 Intake & Output 03/11/22 03/12/22 03/12/22 18:59 06:59 18:59 Intake Total 900 485 540 Output Total 600 1300 650 Balance 300 -815 -110 Weight 76 kg Intake: Oral 900 485 540 Output: Urine 400 1300 650 Post Void Residual 200 Other: Voiding Method External Catheter External Catheter External Catheter - Exam General appearance: alert, in no apparent distress, currently on 3 L oxygen nasal cannula Head exam: Present: atraumatic, normocephalic, normal inspection Respiratory exam: Present: rhonchi, decreased breath sounds, prolonged expiratory Cardiovascular Exam: Present: regular rate, normal rhythm, normal heart sounds GI/Abdominal exam: Present: soft, normal bowel sounds. Absent: distended, tenderness Extremities exam: Present: other (3+ pitting edema bilaterally) Neurological exam: Present: alert, oriented X3, CN II-XII intact Psychiatric exam: Present: normal affect, normal mood Skin exam: Present: warm, dry, intact, normal color. Absent: rash - Labs CBC & Chem 7: 03/12/22 10:08 03/12/22 10:08 Labs: Abnormal Lab Results - Last 24 Hours (Table) 03/12/22 03/12/22 Range/Units 10:08 10:08 RBC 3.58 L (4.30-5.90) m/uL MCV 118.3 H (80.0-100.0) fL MCH 36.2 H (25.0-35.0) pg MCHC 30.6 L (31.0-37.0) g/dL Plt Count 148 L (150-450) k/uL Neutrophils # 8.1 H (1.3-7.7) k/uL Lymphocytes # 0.4 L (1.0-4.8) k/uL Macrocytosis Marked A Carbon Dioxide 36 H (22-30) mmol/L BUN 55 H (9-20) mg/dL Creatinine 1.63 H (0.66-1.25) mg/dL Calcium 7.9 L (8.4-10.2) mg/dL Microbiology - Last 24 Hours (Table) 03/10/22 16:22 Gram Stain - Final Sputum Sputum Culture - Final 03/10/22 16:02 Blood Culture - Preliminary Blood No Growth after 24 hours 03/10/22 15:53 Blood Culture - Preliminary Blood No Growth after 24 hours Assessment and Plan Plan: Acute exacerbation of chronic CHF. The patient is presenting with worsening shortness of breath, increased edema, elevated proBNP level and a chest x-ray is consistent with CHF with small left-sided pleural effusion and interstitial markings bilaterally Acute hypoxic respiratory failure currently on 2 L of O2 nasal cannula Chronic atrial fibrillation, maintained on accommodation of metoprolol and amiodarone in addition to that the patient has been on long-term anticoagulants with Eliquis. Chronic stage III kidney disease Plan Awaiting echocardiogram Continue Lasix Titrate FiO2 Continue anticoagulants with Eliquis Check pro calcitonin level was low at 0.14 Cardiology consultation Echocardiogram is still pending for now CAT scan of the lumbar sacral spine was noted A brace was recommended to the lumbar spine compression fracture
--- NOTE | 2022-03-12 16:21 | P.PN ---
Subjective Progress Note Date: 03/12/22 PROGRESS NOTE The patient is a 76-year-old male with a known history of atrial fibrillation, followed by a universal grinder operator at [facility] who presented with symptoms of progressive weakness, fatigue and worsening dyspnea. He has a chronic cough. He denies any prior history of chest discomfort. He has been told that he has a normal systolic function. He has been evaluated for possible cardioversion and was initiated on amiodarone about 6 weeks ago according to him. He denies any dizziness or palpitations. He has no clear PND or orthopnea. He has been anticoagulated. He has a prior history of smoking but stopped over 5 years ago. In the emergency room he was noted to have evidence of CHF with mild elevation of his troponin. His chest x-ray was consistent with pleural effusion. March 12: The patient feels better today, his breathing is better. His peripheral edema has improved. He denies any chest discomfort. He is complaining of back discomfort. He has no nausea or vomiting. His echocardiogram is pending. Medications: Amiodarone 200 mg twice a day, Lasix 40 mg IV every 12 hours, Toprol 25 mg daily,Eliquis 5 mg twice a day,Farxiga milligrams daily PHYSICAL EXAMINATION: Blood pressure 92/60 heart rate 80 LUNGS: Few crackles at the bases HEART: Irregular rate and rhythm, S1, S2. No S3. systolic ejection murmur ABDOMEN: Soft, nontender, no organomegaly EXTREMETIES: +1 edema LAB: BUN 55, creatinine 1.63, potassium 4.3, hemoglobin 13, NT proBNP [id number] IMPRESSION: 1. CHF, status of LV function unclear 2. Chronic persistent atrial fibrillation 3. Chronic kidney disease 4. Chronic back pain PLAN: 1. Obtain an echocardiogram with Doppler 2. Continue IV diuresis for another 24 hours 3. Obtain records from primary universal grinder operator 4. Follow her renal functions 5. Depending on his progress further recommendations will be made Objective - Vital Signs Vital signs: Vital Signs Temp 97.5 F L 03/11/22 04:14 Pulse 102 H 03/12/22 13:36 Resp 15 03/12/22 11:28 BP 92/60 03/12/22 13:36 Pulse Ox 92 L 03/12/22 13:36 FiO2 Intake & Output 03/11/22 03/12/22 03/12/22 18:59 06:59 18:59 Intake Total 900 485 540 Output Total 600 1300 650 Balance 300 -815 -110 Weight 76 kg Intake: Oral 900 485 540 Output: Urine 400 1300 650 Post Void Residual 200 Other: Voiding Method External Catheter External Catheter External Catheter - Labs CBC & Chem 7: 03/12/22 10:08 03/12/22 10:08 Labs: Abnormal Lab Results - Last 24 Hours (Table) 03/12/22 03/12/22 Range/Units 10:08 10:08 RBC 3.58 L (4.30-5.90) m/uL MCV 118.3 H (80.0-100.0) fL MCH 36.2 H (25.0-35.0) pg MCHC 30.6 L (31.0-37.0) g/dL Plt Count 148 L (150-450) k/uL Neutrophils # 8.1 H (1.3-7.7) k/uL Lymphocytes # 0.4 L (1.0-4.8) k/uL Macrocytosis Marked A Carbon Dioxide 36 H (22-30) mmol/L BUN 55 H (9-20) mg/dL Creatinine 1.63 H (0.66-1.25) mg/dL Calcium 7.9 L (8.4-10.2) mg/dL Microbiology - Last 24 Hours (Table) 03/10/22 16:22 Gram Stain - Final Sputum Sputum Culture - Final 03/10/22 16:02 Blood Culture - Preliminary Blood No Growth after 24 hours 03/10/22 15:53 Blood Culture - Preliminary Blood No Growth after 24 hours
[2022-03-12] MEDS: METOPROLOL SUCCINATE (ER) 25 MG TAB.ER.24H PO SCH (21:13)
[2022-03-13] MEDS: MIDODRINE 5 MG TAB PO SCH ×3 (06:39→17:10)
[2022-03-13] MEDS: PANTOPRAZOLE 40 MG TABLET PO SCH (06:39)
[2022-03-13 07:50] LABS: Basophils % (A) 0 %; Eosinophils % (A) 1 %; HCT 42.1 % (39.0-53.0); HGB 13.3 gm/dL (13.0-17.5); Hypochromasia Marked; Lymphocytes # (A) 0.3 k/uL (1.0-4.8); Lymphocytes % (A) 4 %; MCH 36.8 pg (25.0-35.0); MCHC 31.5 g/dL (31.0-37.0); MCV 116.9 fL (80.0-100.0); Macrocytosis Marked; Mean Platelet Volume 9.4; Monocytes # (A) 0.5 k/uL (0-1.0); Monocytes % (A) 7 %; Neutrophils % (A) 88 %; Platelet Count 161 k/uL (150-450); RDW 14.4 % (11.5-15.5); WBC 6.9 k/uL (3.8-10.6)
[2022-03-13 07:59] LABS: Calcium 7.8 mg/dL (8.4-10.2); Magnesium 1.7 mg/dL (1.6-2.3)
--- NOTE | 2022-03-13 08:31 | P.PN ---
Subjective Progress Note Date: 03/13/22 patient seen and examined he seems to be doing okay today. He is able to lift his legs up out of bed. He states he did not get up yesterday and known helped him up. He still having difficulty with his sentences as he is only able to speak in 3 or forward sentences due to shortness of breath. Denies fevers or chills overnight denies any chest pain at this time. No perineal numbness or tingling Objective - Vital Signs Vital signs: Vital Signs Temp 97.6 F 03/13/22 03:27 Pulse 84 03/13/22 03:27 Resp 18 03/13/22 03:27 BP 84/53 03/13/22 03:27 Pulse Ox 97 03/13/22 03:27 FiO2 Intake & Output 03/12/22 03/13/22 03/13/22 18:59 06:59 18:59 Intake Total 1260 118 Output Total 1250 1450 Balance 10 -1450 118 Weight 75.5 kg Intake: Oral 1260 118 Output: Urine 1250 1450 Other: Voiding Method External Catheter External Catheter - Exam Physical Exam: -Patient is alert and oriented 3 appears well-nourished well-hydrated is in no acute distress. They do not appear septic. -There is no tenderness to palpation -Upper extremities show [5] out of 5 strength in all major muscle groups. generalized weakness -Lower extremities with 4 minus out of 5 strength in all major muscle groupsgeneralized weakness -There is [FROM] that is [painless] of the b/l UE and LE in all major joints. negative log roll or straight leg raise -They are intact to light touch sensation in C5 to T1 and L2 to S1 nerve di stribution. -DTR [2]/4 all upper and lower extremities -Patient has palpable distal pulses all 4 ext -Compartments are soft and compressible. -Patient shows a negative Germania's [-Neg Hoffmans b/l] [-Neg Clonus b/l] [-Neg babinski b/l] Cranial nerves II through XII are grossly intact. - Labs CBC & Chem 7: 03/13/22 05:56 03/13/22 05:56 Labs: Abnormal Lab Results - Last 24 Hours (Table) 03/12/22 03/12/22 03/13/22 Range/Units 10:08 10:08 05:56 RBC 3.58 L (4.30-5.90) m/uL MCV 118.3 H (80.0-100.0) fL MCH 36.2 H (25.0-35.0) pg MCHC 30.6 L (31.0-37.0) g/dL Plt Count 148 L (150-450) k/uL Neutrophils # 8.1 H (1.3-7.7) k/uL Lymphocytes # 0.4 L (1.0-4.8) k/uL Macrocytosis Marked A Sodium 135 L (137-145) mmol/L Chloride 92 L (98-107) mmol/L Carbon Dioxide 36 H 40 H (22-30) mmol/L BUN 55 H 52 H (9-20) mg/dL Creatinine 1.63 H 1.67 H (0.66-1.25) mg/dL Calcium 7.9 L 7.8 L (8.4-10.2) mg/dL 03/13/22 Range/Units 05:56 RBC 3.60 L (4.30-5.90) m/uL MCV 116.9 H (80.0-100.0) fL MCH 36.8 H (25.0-35.0) pg MCHC (31.0-37.0) g/dL Plt Count (150-450) k/uL Neutrophils # (1.3-7.7) k/uL Lymphocytes # 0.3 L (1.0-4.8) k/uL Macrocytosis Marked A Sodium (137-145) mmol/L Chloride (98-107) mmol/L Carbon Dioxide (22-30) mmol/L BUN (9-20) mg/dL Creatinine (0.66-1.25) mg/dL Calcium (8.4-10.2) mg/dL Microbiology - Last 24 Hours (Table) 03/10/22 16:02 Blood Culture - Preliminary Blood No Growth after 48 hours 03/10/22 15:53 Blood Culture - Preliminary Blood No Growth after 48 hours 03/10/22 16:22 Gram Stain - Final Sputum Sputum Culture - Final Assessment and Plan Assessment: 1. multiple vertebral compression fractures age-indeterminate 2. CHF exacerbation, medical management 3. Complex medical patient Plan: -MRI with and without contrast is scheduled of the lumbar spine we will review once it is completed - lower extremity and generalized weakness likely due to CHF exacerbation - continue supportive care - will follow
[2022-03-13] MEDS: FUROSEMIDE 10 MG/ML 4 ML VIAL IV SCH ×3 (09:04→21:16)
[2022-03-13] MEDS: AMIODARONE 200 MG TAB PO SCH ×2 (09:05→21:16)
[2022-03-13] MEDS: APIXABAN 5 MG TAB PO SCH ×2 (09:05→21:16)
[2022-03-13] MEDS: CYANOCOBALAMIN 500 MCG TAB PO SCH (09:05)
[2022-03-13] MEDS: DAPAGLIFLOZIN PROPANEDIOL 10 MG TABLET PO SCH (09:05)
--- NOTE | 2022-03-13 10:22 | P.PN ---
Subjective Progress Note Date: 03/13/22 The patient states he feels he is doing better and feels strength is improving. Per nurse he continues to have significant edema in lowers. Objective - Vital Signs Vital signs: Vital Signs Temp 97.7 F 03/13/22 09:00 Pulse 89 03/13/22 09:00 Resp 20 03/13/22 09:00 BP 87/51 03/13/22 09:00 Pulse Ox 91 L 03/13/22 09:00 FiO2 Intake & Output 03/12/22 03/13/22 03/13/22 18:59 06:59 18:59 Intake Total 1260 118 Output Total 1250 1450 Balance 10 -1450 118 Weight 75.5 kg Intake: Oral 1260 118 Output: Urine 1250 1450 Other: Voiding Method External Catheter External Catheter External Catheter - Exam GENERAL: The patient is lying in bed and is not in acute distress. CHEST: Bilateral lower extremity edema 2+/ INTEGUMENTARY: No erythema or discoloration noted. NEUROLOGICAL: Higher mental function: The patient is awake, alert, oriented to self, place and time. Patient is following commands. No aphasia and no neglect. Cranial nerves: The pupils are round, equal and reactive to light and accommodation. Visual gay are full to confrontation throughout. Extraocular movement is intact no nystagmus is noted. Facial sensation is normal to touch throughout. The facial strength is normal throughout. Hearing is normal bilaterally to hand rub. Tongue is midline and moved [id number] without any difficulty. No dysarthria is noted. Shoulder shrug is normal bilaterally. Motor: The strength is thighs are 5- on left while right is 5-. Knees and ankles are 5-. Otherwise 5 over 5 throughout. Normal tone and bulk. Cerebellum: Normal finger to nose bilaterally. Sensation: Sensation is normal to touch throughout. Reflexes (right/left): 1+ throughout uppers while lowers are 0. Plantars are mute bilaterally. Some of the workup during this hospital visit consisted of: MCV is 112 and repeat is 115. CK level is 250 which is minimally slightly elevated. Her creatinine is 1.42 in the BUN is 54, initial low serum glucose is 103, calcium is 8.7, mag magnesium 2.0, phosphorus is 4.1, AST and ALT is within normal limits CT thorax and lumbar is reported as diffuse osseous demineralization limits evaluation for acute fracture. No obvious fracture line identified. Consider MRI for further evaluation if the repeat CAT as there remains clinical concern. L1 with retropulsion up to 5 mm could represent sequela of compression fracture attention on MRI. No evidence for sacral fracture. Bilateral sacroiliac joint degeneration. There is air space opacity seen throughout the long correlate for pneumonia. Cardiomegaly, pulmonary vascular congestion and pleural effusion correlate with serum BMP for heart failure Venous duplex is negative for DVT in both legs Vitamin B12 354 Serum folate is 8.90 TSH: 26.30 - Labs CBC & Chem 7: 03/13/22 05:56 03/13/22 05:56 Labs: Abnormal Lab Results - Last 24 Hours (Table) 03/12/22 03/12/22 03/13/22 Range/Units 10:08 10:08 05:56 RBC 3.58 L (4.30-5.90) m/uL MCV 118.3 H (80.0-100.0) fL MCH 36.2 H (25.0-35.0) pg MCHC 30.6 L (31.0-37.0) g/dL Plt Count 148 L (150-450) k/uL Neutrophils # 8.1 H (1.3-7.7) k/uL Lymphocytes # 0.4 L (1.0-4.8) k/uL Macrocytosis Marked A Sodium 135 L (137-145) mmol/L Chloride 92 L (98-107) mmol/L Carbon Dioxide 36 H 40 H (22-30) mmol/L BUN 55 H 52 H (9-20) mg/dL Creatinine 1.63 H 1.67 H (0.66-1.25) mg/dL Calcium 7.9 L 7.8 L (8.4-10.2) mg/dL 03/13/22 Range/Units 05:56 RBC 3.60 L (4.30-5.90) m/uL MCV 116.9 H (80.0-100.0) fL MCH 36.8 H (25.0-35.0) pg MCHC (31.0-37.0) g/dL Plt Count (150-450) k/uL Neutrophils # (1.3-7.7) k/uL Lymphocytes # 0.3 L (1.0-4.8) k/uL Macrocytosis Marked A Sodium (137-145) mmol/L Chloride (98-107) mmol/L Carbon Dioxide (22-30) mmol/L BUN (9-20) mg/dL Creatinine (0.66-1.25) mg/dL Calcium (8.4-10.2) mg/dL Microbiology - Last 24 Hours (Table) 03/10/22 16:02 Blood Culture - Preliminary Blood No Growth after 48 hours 03/10/22 15:53 Blood Culture - Preliminary Blood No Growth after 48 hours 03/10/22 16:22 Gram Stain - Final Sputum Sputum Culture - Final Assessment and Plan Assessment: Recurrent falls with weakness in lowers legs: I feel more due to his edema from congestive heart failure that is progressively worsening. Did not appreciate focal weakness in lowers. Has L1 compression fracture notified for one year. Kidney insufficiency (unsure if acute, or chronic) Elevated troponin Elevated MCV. Unsure cause Atrial fibrillation on eliquis and amiodarone Hx of compression L1 fracture Congestive heart failure Plan: Pending MRI Lumbar spine w/o and w/o STAT. Orthopedic team is on board. They stated no surgical intervention at this time. On thiamine 100mg daily and folic acid 1mg daily by benjiy team. On Vitamin B12 1000mcg daily since has low normal levels. PT and OT are consulted. Will defer the rest of medical management to primary team. The plan is discussed with patient and his nurse. Time with Patient: Less than 30
--- NOTE | 2022-03-13 11:08 | MR ---
EXAMINATION TYPE: MR lumbar spine wo/w con DATE OF EXAM: 03/13/2022 COMPARISON: CT thoracic and lumbar spine 03/10/2022 HISTORY: Compression fracture L1, recurrent falls, leg weakness CONTRAST: 8 mL intravenous Gadavist. TECHNIQUE: Multiplanar, multisequence images of the lumbar spine were acquired. FINDINGS: Signal through the lumbar vertebral levels appears preserved. T12: There is increased signal within the superior endplate of T12 suggesting underlying compression. Very minimal central increased signal is present at T11 which may be an acute compression deformity is well. L5-S1: Mild disc bulges anterior thecal sac flattening. No AP spinal canal stenosis or neural foramin al stenosis is present. There is narrowing of the disc height. L4-L5: Minimal disc bulge has anterior thecal sac flattening. No AP spinal canal stenosis present. Mi ld left facet hypertrophy is present. No spinal canal stenosis. No foraminal stenosis. Neural fora men are patent.. L3-L4: No significant disc bulge or disc herniation. Some central endplate spurring from L4 may have moderate anterior thecal sac compression. No spinal canal stenosis. No foraminal stenosis. L2-L3: No significant disc bulge or disc herniation. No spinal canal stenosis. No foraminal stenosi s. L1-L2: No significant disc bulge or disc herniation. No spinal canal stenosis. No foraminal stenosi s. T12-L1: No significant disc bulge or disc herniation. No spinal canal stenosis. No foraminal stenos is. No suspicious enhancement is evident. IMPRESSION: 1. Signal change within the superior endplate of T12 without significant loss of height is present porter ggesting underlying acute fracture. 2. Some very minimal change may be present within the superior endplate of T11 compatible with mild e ndplate acute compression. This is superimposed on the chronic compression deformity of T11.
--- NOTE | 2022-03-13 11:29 | P.PN ---
Subjective This is a pleasant 76 years old male with multiple problems presents with respiratory symptoms, mainly with shortness of breath suspicious for acute CHF exacerbation, known ejection fraction unknown Also there is a suspicion of bilateral pneumonia. Patient has been feeling weakness for about several days and fell twice at home. For the last 3 days The patient feels generally weak however he denies specific weakness or asymmetric weakness. It looks like secondary to severe leg edema about 3+ He denies chest pain or abdominal pain. However per MRI of the thoracic and lumbar spine there's multiple levels of compression fractures. Today he thinks that his dyspnea is better. He is mildly tachypneic. He has full mentation. Patient is not on home oxygen His PCP is Dr. holder He has external urinary catheter Vitas looks stable, he is saturating 99% on 3 L, blood pressure on the low side 96/62 Creatinine improving slightly 1.4-1.3. 03/12/2022 Patient with mild tachypnea, no significant dyspnea, he remains on IV Lasix 40 mg twice daily and has good urine output however her blood pressure on the low side 82/59 1 and, metoprolol was held yesterday, creatinine went up 1.3-1.6. We added midodrine 5 mg 3 times a day) monitoring. Patient finish his Zithromax. Tomorrow's last dose of ceftriaxone. No need for further antibiotics after that per pulmonary team. Patient Is also on Eliquis blood thinner for A. fib, platelet count 148, hemoglobin normal. MRI of the lumbar spine for by leg weakness is pending, patient leg weakness mostly likely secondary to his significant leg edema 3+ Patient has external urine catheter 03/13/2022 Patient still complaining of from exertional dyspnea and occasional coughing, he has bilateral pitting leg edema 3+ and is currently on IV Lasix 40 mg twice daily, proBNP still elevated, however his blood pressure on the low normal, yesterday we added midodrine 5 mg however pressure this morning is still the same age 87/51, however patient with no dizziness or other significant complaint. We will check serum cortisol tomorrow. Echocardiogram still pending He is on ceftriaxone finishes therapy, no need for further antibiotic. Lumbar spine showing acute fracture T12, orthopedic team on the case. We will add fluid restriction 1200 mL today Objective - Vital Signs Vital signs: Vital Signs Temp 97.7 F 03/13/22 09:00 Pulse 89 03/13/22 09:00 Resp 20 03/13/22 09:00 BP 87/51 03/13/22 09:00 Pulse Ox 91 L 03/13/22 09:00 FiO2 Intake & Output 03/12/22 03/13/22 03/13/22 18:59 06:59 18:59 Intake Total 1260 118 Output Total 1250 1450 Balance 10 -1450 118 Weight 75.5 kg Intake: Oral 1260 118 Output: Urine 1250 1450 Other: Voiding Method External Catheter External Catheter External Catheter - Exam -GENERAL: The patient is alert and oriented x3, not in any acute distress. Well developed, well nourished. Generally tired and weak HEENT: Pupils are round and equally reacting to light. EOMI. No scleral icterus. No conjunctival pallor. Normocephalic, atraumatic. No pharyngeal erythema. No thyromegaly. CARDIOVASCULAR: S1 and S2 present. No murmurs, rubs, or gallops. -PULMONARY: Chest is clear to auscultation, no wheezing . Mildly tachypneic and bilateral medication ABDOMEN: Soft, nontender, nondistended, normoactive bowel sounds. No palpable organomegaly. MUSCULOSKELETAL: No joint swelling or deformity. -EXTREMITIES: No cyanosis, clubbing, .bilateral pitting leg l edema. NEUROLOGICAL: Gross neurological examination did not reveal any focal deficits. SKIN: No rashes. no petechiae. - Labs CBC & Chem 7: 03/13/22 05:56 03/13/22 05:56 Labs: Abnormal Lab Results - Last 24 Hours (Table) 03/13/22 03/13/22 Range/Units 05:56 05:56 RBC 3.60 L (4.30-5.90) m/uL MCV 116.9 H (80.0-100.0) fL MCH 36.8 H (25.0-35.0) pg Lymphocytes # 0.3 L (1.0-4.8) k/uL Macrocytosis Marked A Sodium 135 L (137-145) mmol/L Chloride 92 L (98-107) mmol/L Carbon Dioxide 40 H (22-30) mmol/L BUN 52 H (9-20) mg/dL Creatinine 1.67 H (0.66-1.25) mg/dL Calcium 7.8 L (8.4-10.2) mg/dL Microbiology - Last 24 Hours (Table) 03/10/22 16:02 Blood Culture - Preliminary Blood No Growth after 48 hours 03/10/22 15:53 Blood Culture - Preliminary Blood No Growth after 48 hours 03/10/22 16:22 Gram Stain - Final Sputum Sputum Culture - Final Assessment and Plan Assessment: Acute CHF exacerbation Bilateral pneumonia is suspected Acute kidney injury Chronic atrial fibrillation on Eliquis Fall at home without losing consciousness Multiple vertebral compression fractures Bilateral patellar leg edema Generalized weakness more in the legs than upper extremities but symmetrical Plan: Continue with Zithromax and ceftriaxone Continue with IV Lasix Continue with home Eliquis Several consultants on the case including cardiology, pulmonary and orthopedic team Labs and medication were reviewed.. Continue same treatment. Continue with symptomatic treatment. Resume home medication. Monitor labs and vitals. DVT and GI prophylaxis. Further recommendations as per clinical course of the patient DVT prophylaxis: Eliquis GI Prophylaxis: ppi PT/OT: Pending Prognosis is guarded
[2022-03-13] MEDS: FOLIC ACID 1 MG TAB PO SCH (12:02)
[2022-03-13] MEDS: THIAMINE 100 MG TAB PO SCH (12:02)
[2022-03-13] MEDS: MULTIVITAMINS, THERA 1 EACH TAB PO SCH (12:02)
--- NOTE | 2022-03-13 12:26 | CA ---
Transthoracic Echo Report Name: Don Ramirez Age: 76 Gender: M : 1945 Exam Date: 03/13/2022 09:27 Exam Location: [facility] Ht (in): 60 Wt (lb): 166 Ordering Physician: Alcon Mercado MD ([id number]) Attending/Referring Phys: Soap Press Feeder Magnolia Rodrigues RDCS Procedure CPT: Indications: afib Cardiac Hx: Technical Quality: Contrast 1: Total Dose (mL): Contrast 2: Total Dose (mL): MEASUREMENTS (Male / Female) Normal Values 2D ECHO LV Diastolic Diameter PLAX 4.4 cm 4.2 - 5.9 / 3.9 - 5.3 cm LV Systolic Diameter PLAX 3.8 cm IVS Diastolic Thickness 1.0 cm 0.6 - 1.0 / 0.6 - 0.9 cm LVPW Diastolic Thickness 1.2 cm 0.6 - 1.0 / 0.6 - 0.9 cm LV Relative Wall Thickness 0.5 RV Internal Dim ED PLAX 3.8 cm LA Systolic Diameter LX 3.4 cm 3.0 - 4.0 / 2.7 - 3.8 cm M-MODE Aortic Root Diameter MM 3.3 cm LA Systolic Diameter MM 2.9 cm LA Ao Ratio MM 0.9 MV E Point Septal Separation 0.8 cm AV Cusp Separation MM 1.6 cm DOPPLER TR Peak Velocity 248.0 cm/s TR Peak Gradient 24.6 mmHg Right Ventricular Systolic Press 28.6 mmHg FINDINGS Left Ventricle Left ventricular ejection fraction is estimated at 35%. Posterior hypokinesis. Left ventricular cavity size normal. Right Ventricle moderate right ventricular dilatation. Right ventricular systolic pressure within normal limits. Right Atrium Normal right atrial size. Left Atrium Normal left atrial size. Mitral Valve Structurally normal mitral valve. Aortic Valve Trileaflet aortic valve. Tricuspid Valve Structurally normal tricuspid valve. Moderate to severe tricuspid regurgitation. Pulmonic Valve Structurally normal pulmonic valve. Pericardium Normal pericardium. Aorta Normal size aortic root and proximal ascending aorta. CONCLUSIONS Impaired on the function was EF around 35% Right ventricular that his elevation Moderate to severe tricuspid regurgitation Previewed by: Dr. Thanh Martines MD (Electronically Signed) Final Date: 13 March 2022 12:24
--- NOTE | 2022-03-13 12:39 | P.PN ---
Subjective PROGRESS NOTE The patient is a 76-year-old male with a known history of atrial fibrillation, followed by a bellhop at [facility] who presented with symptoms of progressive weakness, fatigue and worsening dyspnea. He has a chron ic cough. He denies any prior history of chest discomfort. He has been told that he has a normal systolic function. He has been evaluated for possible cardioversion and was initiated on amiodarone about 6 weeks ago according to him. He denies any dizziness or palpitations. He has no clear PND or orthopnea. He has been anticoagulated. He has a prior history of smoking but stopped over 5 years ago. In the emergency room he was noted to have evidence of CHF with mild elevation of his troponin. His chest x-ray was consistent with pleural effusion. March 12: The patient feels better today, his breathing is better. His peripheral edema has improved. He denies any chest discomfort. He is complaining of back discomfort. He has no nausea or vomiting. His echocardiogram is pending. 03/13 Patient seen and examined. Patient is having borderline blood pressures 80s over 60s however asymptomatic and does not do any walking. He states this is secondary to compression fractures in the past. Creatinine stable 1.6. He has been on Midodrin. Echocardiogram reviewed with EF 35% with moderate to severe tricuspid regurgitation with RVSP 28 and moderate right ventricular dilation. PHYSICAL EXAMINATION: Vitals reviewed LUNGS: Few crackles at the bases HEART: Irregular rate and rhythm, S1, S2. No S3. systolic ejection murmur ABDOMEN: Soft, nontender, no organomegaly EXTREMETIES: +2 edema IMPRESSION: 1. Acute on chronic systolic heart failure with EF 35%. More right sided than left sided heart failure 2. Persistent atrial fibrillation 3. Chronic kidney disease 4. Chronic back pain 5. Moderate RV dilation. May be related to pulmonary hypertension, underestimated secondary to RV hypokinesis 6. Moderate to severe tricuspid regurgitation PLAN: Continue with IV diuretics. Blood pressures been borderline. Patient with kidney injury and no significant angina-type symptoms. May consider ischemic workup as an outpatient however optimize heart failure regimen. Further recommendations to follow. Objective - Vital Signs Vital signs: Vital Signs Temp 97.7 F 03/13/22 09:00 Pulse 89 03/13/22 09:00 Resp 20 03/13/22 09:00 BP 87/51 03/13/22 09:00 Pulse Ox 91 L 03/13/22 09:00 FiO2 Intake & Output 03/12/22 03/13/22 03/13/22 18:59 06:59 18:59 Intake Total 1260 118 Output Total 1250 1450 Balance 10 -1450 118 Weight 75.5 kg Intake: Oral 1260 118 Output: Urine 1250 1450 Other: Voiding Method External Catheter External Catheter External Catheter - Labs CBC & Chem 7: 03/13/22 05:56 03/13/22 05:56 Labs: Abnormal Lab Results - Last 24 Hours (Table) 03/13/22 03/13/22 Range/Units 05:56 05:56 RBC 3.60 L (4.30-5.90) m/uL MCV 116.9 H (80.0-100.0) fL MCH 36.8 H (25.0-35.0) pg Lymphocytes # 0.3 L (1.0-4.8) k/uL Macrocytosis Marked A Sodium 135 L (137-145) mmol/L Chloride 92 L (98-107) mmol/L Carbon Dioxide 40 H (22-30) mmol/L BUN 52 H (9-20) mg/dL Creatinine 1.67 H (0.66-1.25) mg/dL Calcium 7.8 L (8.4-10.2) mg/dL Microbiology - Last 24 Hours (Table) 03/10/22 16:02 Blood Culture - Preliminary Blood No Growth after 48 hours 03/10/22 15:53 Blood Culture - Preliminary Blood No Growth after 48 hours 03/10/22 16:22 Gram Stain - Final Sputum Sputum Culture - Final
--- NOTE | 2022-03-13 16:18 | P.PN ---
Progress Note - Text Progress Note Date: 03/13/22 MRI L spine reviewed chronic L4 compression fracture subacute L2 compression fracture likely acute T12 fracture compression type with minimal height loss T11 vertebral compression fracture wedge shape 20% height loss difficult to determine chronicity due to the image quality. severe L5-S1 spondylosis with disc height loss and degeneration varying degrees of stenosis throughout the lumbar spine none severe correlating clinically the patient has minimal pain with palpation in the areas in question. If he continues to have difficulty due to pain would reassess and possibly discuss kyphoplasty
[2022-03-13] MEDS: METOPROLOL SUCCINATE (ER) 25 MG TAB.ER.24H PO SCH (21:16)
[2022-03-14] MEDS: PANTOPRAZOLE 40 MG TABLET PO SCH (06:22)
[2022-03-14] MEDS: MIDODRINE 5 MG TAB PO SCH ×3 (06:22→17:32)
[2022-03-14 08:08] LABS: Basophils % (A) 0 %; Eosinophils # (A) 0.1 k/uL (0-0.7); Eosinophils % (A) 1 %; HGB 12.8 gm/dL (13.0-17.5); Hypochromasia Moderate; Lymphocytes # (A) 0.4 k/uL (1.0-4.8); Lymphocytes % (A) 5 %; MCH 36.9 pg (25.0-35.0); MCV 115.2 fL (80.0-100.0); Macrocytosis Marked; Mean Platelet Volume 8.6; Monocytes # (A) 0.6 k/uL (0-1.0); Monocytes % (A) 7 %; Neutrophils % (A) 86 %; Platelet Count 169 k/uL (150-450); RBC 3.47 m/uL (4.30-5.90); RDW 14.4 % (11.5-15.5); WBC 8.1 k/uL (3.8-10.6)
[2022-03-14 08:21] LABS: Calcium 7.7 mg/dL (8.4-10.2); Magnesium 1.7 mg/dL (1.6-2.3); Potassium 3.6 mmol/L (3.5-5.1)
--- NOTE | 2022-03-14 08:31 | P.PN ---
Subjective Progress Note Date: 03/14/22 Principal diagnosis: Bilateral lower extremity weakness Patient seen and examined this morning. Patient was resting in bed eating breakfast. He states he worked with physical therapy yesterday and sat up in chair, complaint of increased pain with activity. He states his pain is controlled on current regimen. Patient denies any numbness tingling to bilateral lower extremities. Encouragement to continue to work with physical therapy. Patient denies any fever/chills, nausea/vomiting, or chest pain. Objective - Vital Signs Vital signs: Vital Signs Temp 97.7 F 03/14/22 04:00 Pulse 73 03/14/22 04:00 Resp 15 03/14/22 04:00 BP 94/60 03/14/22 04:00 Pulse Ox 95 03/14/22 04:00 FiO2 Intake & Output 03/13/22 03/14/22 03/14/22 18:59 06:59 18:59 Intake Total 1244 180 Output Total 700 2100 Balance 544 -1920 Weight 72 kg Intake: Intake, IV Titration 50 Amount cefTRIAXone 2 gm In 50 Sodium Chloride 0.9% 50 ml @ 100 mls/hr IVPB Q24H [facility] Rx#:[id number] Oral 1194 180 Output: Urine 700 2100 Other: Voiding Method External Catheter External Catheter - Exam Physical Examination General: The patient is awake and alert, in no acute distress Skin: Skin is warm and dry with no obvious rashes or lesions. Hairy patches absent, no dorsal skin dimples, no cafe au lait spots, and no surgical incisions. Eye: Pupils are equal, round and reactive to light, extra-ocular movements are intact; there is normal conjunctiva bilaterally. Neck: The neck is supple, there is no tenderness and ROM intact. Cardiovascular: There is a regular rate and rhythm. No murmur, rub or gallop is appreciated. Respiratory: Lungs are clear to auscultation, respirations are non-labored, breath sounds are equal. Gastrointestinal: Soft, non-distended, non-tender abdomen. Back: There is minimal tenderness to palpation in the midline region. There is no obvious deformity . Musculoskeletal: ROM limited secondary to pain and stiffness. Muscle strength in all major muscle groups of bilateral upper extremities 5/5, bilateral lower extremities 4-/5. Neurological: CN 2-12 intact. There are no obvious motor or sensory deficits. Movement and coordination equal and intact. Sensory exam to light touch intact C5-T1 and intact from L2-S1. Reflexes 2/4 in bilateral upper and lower extremities. Negative Hoffmans, babinski, and clonus signs. Psychiatric: Cooperative, appropriate mood & affect, normal judgment. - Labs CBC & Chem 7: 03/14/22 07:35 03/13/22 05:56 Labs: Abnormal Lab Results - Last 24 Hours (Table) 03/13/22 03/13/22 Range/Units 05:56 05:56 RBC 3.60 L (4.30-5.90) m/uL MCV 116.9 H (80.0-100.0) fL MCH 36.8 H (25.0-35.0) pg Lymphocytes # 0.3 L (1.0-4.8) k/uL Macrocytosis Marked A Sodium 135 L (137-145) mmol/L Chloride 92 L (98-107) mmol/L Carbon Dioxide 40 H (22-30) mmol/L BUN 52 H (9-20) mg/dL Creatinine 1.67 H (0.66-1.25) mg/dL Calcium 7.8 L (8.4-10.2) mg/dL Microbiology - Last 24 Hours (Table) 03/10/22 16:02 Blood Culture - Preliminary Blood No Growth after 72 hours 03/10/22 15:53 Blood Culture - Preliminary Blood No Growth after 72 hours Assessment and Plan Assessment: Bilateral lower extremity weakness Chronic L4 compression fracture Subacute L2 compression fracture Acute T12 compression fracture with minimal height loss Acute T11 compression fracture with 20% height loss CHF exacerbation, medical management Complex medical patient Plan: Plan: -Appreciate furniture rental consultant and team management. -Activity: Ambulate QID, OOB all meals, up and about, limit lifting bending t wisting to less than 5 lbs. Use walker or cane if needed for stability. -Daily PT/OT, increase ambulation strength and balance. -Brace when up and about, not needed in bed or chair -Pain control: Adequate at this time -Meds: reviewed -Correlating clinically the patient has minimal pain with palpation in the areas in question. If he continues to have difficulty due to pain would reassess and possibly discuss kyphoplasty *I reviewed and discussed this case with my attending Dr. Jacobson, whom has reviewed this chart and films and is in agreement with assessment and plan of care as outlined above. I have personally seen and examined the patient, performed the documentation and the assessment and plan as written. Number of minutes spent on the visit: 20m.
[2022-03-14] MEDS: FUROSEMIDE 10 MG/ML 4 ML VIAL IV SCH ×2 (09:18→20:00)
[2022-03-14] MEDS: DAPAGLIFLOZIN PROPANEDIOL 10 MG TABLET PO SCH (09:19)
[2022-03-14] MEDS: CYANOCOBALAMIN 500 MCG TAB PO SCH (09:19)
[2022-03-14] MEDS: APIXABAN 5 MG TAB PO SCH ×2 (09:19→19:59)
[2022-03-14] MEDS: AMIODARONE 200 MG TAB PO SCH ×2 (09:19→19:59)
--- NOTE | 2022-03-14 10:51 | P.PN ---
Subjective This is a pleasant 76 years old male with multiple problems presents with respiratory symptoms, mainly with shortness of breath suspicious for acute CHF exacerbation, known ejection fraction unknown Also there is a suspicion of bilateral pneumonia. Patient has been feeling weakness for about several days and fell twice at home. For the last 3 days The patient feels generally weak however he denies specific weakness or asymmetric weakness. It looks like secondary to severe leg edema about 3+ He denies chest pain or abdominal pain. However per MRI of the thoracic and lumbar spine there's multiple levels of compression fractures. Today he thinks that his dyspnea is better. He is mildly tachypneic. He has full mentation. Patient is not on home oxygen His PCP is Dr. holder He has external urinary catheter Vitas looks stable, he is saturating 99% on 3 L, blood pressure on the low side 96/62 Creatinine improving slightly 1.4-1.3. 03/12/2022 Patient with mild tachypnea, no significant dyspnea, he remains on IV Lasix 40 mg twice daily and has good urine output however her blood pressure on the low side 82/59 1 and, metoprolol was held yesterday, creatinine went up 1.3-1.6. We added midodrine 5 mg 3 times a day) monitoring. Patient finish his Zithromax. Tomorrow's last dose of ceftriaxone. No need for further antibiotics after that per pulmonary team. Patient Is also on Eliquis blood thinner for A. fib, platelet count 148, hemoglobin normal. MRI of the lumbar spine for by leg weakness is pending, patient leg weakness mostly likely secondary to his significant leg edema 3+ Patient has external urine catheter 03/13/2022 Patient still complaining of from exertional dyspnea and occasional coughing, he has bilateral pitting leg edema 3+ and is currently on IV Lasix 40 mg twice daily, proBNP still elevated, however his blood pressure on the low normal, yesterday we added midodrine 5 mg however pressure this morning is still the same age [age], however patient with no dizziness or other significant complaint. We will check serum cortisol tomorrow. Echocardiogram still pending He is on ceftriaxone finishes therapy, no need for further antibiotic. Lumbar spine showing acute fracture T12, orthopedic team on the case. We will add fluid restriction 1200 mL today 03/14/2022 Patient breathing improving gradually, no dyspnea at rest however patient does not move a lot of because of his back pain, his pain in the lower back. MRI of the spine showing fracture of the 11-T12 with no significant tight clothes. Previous recommended by orthopedic team as well as PT/OT, subacute rehab recommend. vegetable farm worker consulted. His breathing is improving with IV Lasix 40 mg twice daily which is kept bowel. Also he is on home dose of Eliquis. Pneumonia felt less likely and he will finish his antibiotic course. His creatinine is slightly improving down to 1.4 most likely he has mild acute kidney injury on the top of chronic kidney disease most likely stage III. Objective - Vital Signs Vital signs: Vital Signs Temp 97.6 F 03/14/22 09:15 Pulse 93 03/14/22 09:15 Resp 18 03/14/22 09:15 BP 90/55 03/14/22 09:15 Pulse Ox 98 03/14/22 09:15 FiO2 Intake & Output 03/13/22 03/14/22 03/14/22 18:59 06:59 18:59 Intake Total 1244 180 238 Output Total 700 2100 600 Balance 676 -3275 -801 Weight 72 kg Intake: Intake, IV Titration 50 Amount cefTRIAXone 2 gm In 50 Sodium Chloride 0.9% 50 ml @ 100 mls/hr IVPB Q24H [facility] Rx#:[id number] Oral 1194 180 238 Output: Urine 700 2100 600 Other: Voiding Method External Catheter External Catheter External Catheter - Exam -GENERAL: The patient is alert and oriented x3, not in any acute distress. Well developed, well nourished. Generally tired and weak HEENT: Pupils are round and equally reacting to light. EOMI. No scleral icterus. No conjunctival pallor. Normocephalic, atraumatic. No pharyngeal erythema. No thyromegaly. CARDIOVASCULAR: S1 and S2 present. No murmurs, rubs, or gallops. -PULMONARY: Chest is clear to auscultation, no wheezing . Mildly tachypneic and bilateral medication ABDOMEN: Soft, nontender, nondistended, normoactive bowel sounds. No palpable organomegaly. MUSCULOSKELETAL: No joint swelling or deformity. -EXTREMITIES: No cyanosis, clubbing, .bilateral pitting leg l edema. NEUROLOGICAL: Gross neurological examination did not reveal any focal deficits. SKIN: No rashes. no petechiae. - Labs CBC & Chem 7: 03/14/22 07:35 03/14/22 07:35 Labs: Abnormal Lab Results - Last 24 Hours (Table) 03/14/22 03/14/22 Range/Units 07:35 07:35 RBC 3.47 L (4.30-5.90) m/uL Hgb 12.8 L (13.0-17.5) gm/dL MCV 115.2 H (80.0-100.0) fL MCH 36.9 H (25.0-35.0) pg Lymphocytes # 0.4 L (1.0-4.8) k/uL Macrocytosis Marked A Sodium 133 L (137-145) mmol/L Chloride 88 L (98-107) mmol/L Carbon Dioxide 43 H* (22-30) mmol/L BUN 46 H (9-20) mg/dL Creatinine 1.44 H (0.66-1.25) mg/dL Calcium 7.7 L (8.4-10.2) mg/dL Microbiology - Last 24 Hours (Table) 03/10/22 16:02 Blood Culture - Preliminary Blood No Growth after 72 hours 03/10/22 15:53 Blood Culture - Preliminary Blood No Growth after 72 hours Assessment and Plan Assessment: Acute CHF exacerbation Bilateral pneumonia is suspected Acute kidney injury Chronic atrial fibrillation on Eliquis Fall at home without losing consciousness Multiple vertebral compression fractures Bilateral patellar leg edema Generalized weakness more in the legs than upper extremities but symmetrical Plan: Patient finish antibiotic Continue with IV Lasix Obtain a brace per Orthopedic team Continue with home Eliquis Several consultants on the case including cardiology, pulmonary and orthopedic team Labs and medication were reviewed.. Continue same treatment. Continue with symptomatic treatment. Resume home medication. Monitor labs and vitals. DVT and GI prophylaxis. Further recommendations as per clinical course of the patient DVT prophylaxis: Eliquis GI Prophylaxis: ppi PT/OT: steve Prognosis is guarded
--- NOTE | 2022-03-14 11:08 | P.PN ---
Subjective Progress Note Date: 03/14/22 76-year-old male patient presented to the ED for generalized weakness. His condition progresses been getting worse in his legs got weak when he was unable to carry himself. No reported falls. He arrived to the emergency department with the patient was found to be hypoxic with a pulse ox of 70%, on room air, and he was placed on 2 L of O2 nasal cannula. Denies having any form of chronic lung disease. He states that he has underlying congestion heart failure. He has noted increased lower extremity edema and. Also weight gain and cough. In the emergency, he was afebrile, hemodynamically stable, the lesion was at 9.6 hemoglobin was 14.4 with a platelet count of 149, sodium was 142 with a BUN of 54 and a creatinine was 1.4. Coagulation profile was showing INR of 1.5 with a PT of 15 and a PTT of 27 and a d-dimer of 0.8. Influenza screen was negative. RSV was negative. Covid 19 testing was negative. Lactic acid level was at 2.2. Calcium was 8.7. LFTs were normal. CPK was 250. ProBNP level was 13,200. Initial troponin was 0.119. The EKG was consistent with chronic atrial fibrill ation. He did have a mild tachycardia. He also had a right bundle-branch block pattern and Q waves over the anterior septal leads.the chest x-ray was consistent with small left-sided pleural effusion, COPD, increased interstitial markings bilaterally On 03/11/2022, the patient is being seen for a follow-up. The patient remains on diuretics and patient is currently on Lasix 0 mg IV every 12 hours. Patient is also receiving a, his Rocephin and Zithromax. The patient had a fall and the CAT scan of the lumbosacral spine was done and showed some minimal multiple compression fractures of the level of L1. MRI of the spine is also to follow. Otherwise, the patient is doing well. No specific complaints for now. The patient remains on 3 L O2 nasal cannula. Cardiac rhythm is irregular consistent with atrial fibrillation.Repeat labs from today shows a white second of 9.0 with a hemoglobin 15.7, sodium is at 141, BUN is 64 with a creatinine 1.38. 03/12/2022, the patient on 4 L of oxygen nasal cannula and the patient continues to be on diuretics with IV Lasix with a negative fluid balance. Echocardiogram is still pending for now. Creatinine is up to 1.6 with a BUN of 55 and a sodium level is at 137. The white cycles done 0.2 with a hemoglobin of 15. The patient remains also on accommodation of Rocephin and Zithromax. Less congested compared to yesterday. The patient was seen by spine surgery for vertebral compression fracture. There was no need for any emergent orthopedic intervention this point in time. The brace was recommended. The patient is seen today 03/14/2022 in follow-up on the selective care unit. He is currently sitting up in bed. Awake and alert in no acute distress. He denies any worsening shortness of breath. He does have an occasional cough. No fever or chills. He is maintaining O2 saturations in the 90s on 3 L/m per nasal cannula.blood cultures reveal no growth. Sputum culture reveals no growth.white count 8.1. Hemoglobin 12.8. Platelets 169. Sodium 133. Potassium 3.6. Bicarb 43. BUN 46. Creatinine 1.44.he is continued on Lasix 40 mg IV every 12 hours, currently in a -1.4 L balance. Anticoagulated with Eliquis. MRI of the sp ine revealed a signal change within the superior endplate of T12 without significant loss of height is present suggesting underlying acute fracture. Some very minimal change may be present within the superior endplate of T11 compatible with mild endplate acute compression. This is superimposed on the chronic compression deformity of T11. he has been fitted with a brace. He is working with PT/OT. Objective - Vital Signs Vital signs: Vital Signs Temp 97.6 F 03/14/22 09:15 Pulse 93 03/14/22 09:15 Resp 18 03/14/22 09:15 BP 90/55 03/14/22 09:15 Pulse Ox 98 03/14/22 09:15 FiO2 Intake & Output 03/13/22 03/14/22 03/14/22 18:59 06:59 18:59 Intake Total 1244 180 238 Output Total 700 2100 600 Balance 620 -9898 -318 Weight 72 kg Intake: Intake, IV Titration 50 Amount cefTRIAXone 2 gm In 50 Sodium Chloride 0.9% 50 ml @ 100 mls/hr IVPB Q24H [facility] Rx#:[id number] Oral 1194 180 238 Output: Urine 700 2100 600 Other: Voiding Method External Catheter External Catheter External Catheter - Exam GENERAL EXAM: Alert, pleasant 76-year-old male, on 3 L nasal cannula, comfortable in no apparent distress. HEAD: Normocephalic. EYES: Normal reaction of pupils, equal size. NOSE: Clear with pink turbinates. THROAT: No erythema or exudates. NECK: No masses, no JVD. CHEST: No chest wall deformity. LUNGS: Equal air entry with no crackles, wheeze, rhonchi or dullness. CVS: S1 and S2 normal with no audible murmur, regular rhythm. ABDOMEN: No hepatosplenomegaly, normal bowel sounds, no guarding or rigidity. SPINE: No scoliosis or deformity SKIN: No rashes CENTRAL NERVOUS SYSTEM: No focal deficits, tone is normal in all 4 extremities. EXTREMITIES: There is 2+ peripheral edema. No clubbing, no cyanosis. Peripheral pulses are intact. - Labs CBC & Chem 7: 03/14/22 07:35 03/14/22 07:35 Labs: Abnormal Lab Results - Last 24 Hours (Table) 03/14/22 03/14/22 Range/Units 07:35 07:35 RBC 3.47 L (4.30-5.90) m/uL Hgb 12.8 L (13.0-17.5) gm/dL MCV 115.2 H (80.0-100.0) fL MCH 36.9 H (25.0-35.0) pg Lymphocytes # 0.4 L (1.0-4.8) k/uL Macrocytosis Marked A Sodium 133 L (137-145) mmol/L Chloride 88 L (98-107) mmol/L Carbon Dioxide 43 H* (22-30) mmol/L BUN 46 H (9-20) mg/dL Creatinine 1.44 H (0.66-1.25) mg/dL Calcium 7.7 L (8.4-10.2) mg/dL Microbiology - Last 24 Hours (Table) 03/10/22 16:02 Blood Culture - Preliminary Blood No Growth after 72 hours 03/10/22 15:53 Blood Culture - Preliminary Blood No Growth after 72 hours Assessment and Plan Assessment: Acute exacerbation of chronic CHF. The patient is presenting with worsening shortness of breath, increased edema, elevated proBNP level and a chest x-ray is consistent with CHF with small left-sided pleural effusion and interstitial markings bilaterally Acute hypoxic respiratory failure currently on 2 L of O2 nasal cannula Former smoker of 50 years quit approximately 10 years ago Chronic atrial fibrillation, maintained on a combination of metoprolol and amiodarone in addition to that the patient has been on long-term anticoagulants with Eliquis. Chronic stage III kidney disease Fall with with underlying acute fracture of T12 and possibly T11 Plan: The patient was seen and evaluated Currently stable and on 3 L nasal cannula Continuing to diurese well Remains in a negative balance Remains on Lasix 40 mg IV every 12 hours MRI of the spine noted Orthopedics following We will see as needed I have personally seen and examined the patient, performed the documentation and the assessment and plan as written. Number of minutes spent on the visit: 10.
--- NOTE | 2022-03-14 11:16 | P.PN ---
Subjective PROGRESS NOTE The patient is a 76-year-old male with a known history of atrial fibrillation, followed by a shank pinner at [facility] who presented with symptoms of progressive weakness, fatigue and worsening dyspnea. He has a chron ic cough. He denies any prior history of chest discomfort. He has been told that he has a normal systolic function. He has been evaluated for possible cardioversion and was initiated on amiodarone about 6 weeks ago according to him. He denies any dizziness or palpitations. He has no clear PND or orthopnea. He has been anticoagulated. He has a prior history of smoking but stopped over 5 years ago. In the emergency room he was noted to have evidence of CHF with mild elevation of his troponin. His chest x-ray was consistent with pleural effusion. March 12: The patient feels better today, his breathing is better. His peripheral edema has improved. He denies any chest discomfort. He is complaining of back discomfort. He has no nausea or vomiting. His echocardiogram is pending. 03/13 Patient seen and examined. Patient is having borderline blood pressures 80s over 60s however asymptomatic and does not do any walking. He states this is secondary to compression fractures in the past. Creatinine stable 1.6. He has been on Midodrin. Echocardiogram reviewed with EF 35% with moderate to severe tricuspid regurgitation with RVSP 28 and moderate right ventricular dilation. 03/14 Patient seen and examined. He has been having good urine output. His Toprol has been held the last 3 nights secondary to borderline blood pressures in the 90s over 50s. Denies any chest pain or pressure. Remains in A. fib with heart rates in the 70s to 80s. Cr mildly improved to 1.4 today. Bicarb up to 43. PHYSICAL EXAMINATION: Vitals reviewed LUNGS: Few crackles at the bases HEART: Irregular rate and rhythm, S1, S2. No S3. systolic ejection murmur ABDOMEN: Soft, nontender, no organomegaly EXTREMETIES: +2 edema IMPRESSION: 1. Acute on chronic systolic heart failure with EF 35%. More right sided than left sided heart failure 2. Persistent atrial fibrillation 3. Chronic kidney disease 4. Chronic back pain 5. Moderate RV dilation. May be related to pulmonary hypertension, underestimated secondary to RV hypokinesis 6. Moderate to severe tricuspid regurgitation PLAN: Continue with IV diuretics. Acute kidney injury has been improving with diuresis. Decreased dose of metoprolol to 12.5 mg daily. Add Diamox given contraction alkalosis. Still appears volume overloaded and continue with current diuresis. Further recommendations to follow. May consider outpatient ischemic workup however no current angina symptoms. Objective - Vital Signs Vital signs: Vital Signs Temp 97.6 F 03/14/22 09:15 Pulse 93 03/14/22 09:15 Resp 18 03/14/22 09:15 BP 90/55 03/14/22 09:15 Pulse Ox 98 03/14/22 09:15 FiO2 Intake & Output 03/13/22 03/14/22 03/14/22 18:59 06:59 18:59 Intake Total 1244 180 238 Output Total 700 2100 600 Balance 076 -4581 -022 Weight 72 kg Intake: Intake, IV Titration 50 Amount cefTRIAXone 2 gm In 50 Sodium Chloride 0.9% 50 ml @ 100 mls/hr IVPB Q24H [facility] Rx#:[id number] Oral 1194 180 238 Output: Urine 700 2100 600 Other: Voiding Method External Catheter External Catheter External Catheter - Labs CBC & Chem 7: 03/14/22 07:35 03/14/22 07:35 Labs: Abnormal Lab Results - Last 24 Hours (Table) 03/14/22 03/14/22 Range/Units 07:35 07:35 RBC 3.47 L (4.30-5.90) m/uL Hgb 12.8 L (13.0-17.5) gm/dL MCV 115.2 H (80.0-100.0) fL MCH 36.9 H (25.0-35.0) pg Lymphocytes # 0.4 L (1.0-4.8) k/uL Macrocytosis Marked A Sodium 133 L (137-145) mmol/L Chloride 88 L (98-107) mmol/L Carbon Dioxide 43 H* (22-30) mmol/L BUN 46 H (9-20) mg/dL Creatinine 1.44 H (0.66-1.25) mg/dL Calcium 7.7 L (8.4-10.2) mg/dL Microbiology - Last 24 Hours (Table) 03/10/22 16:02 Blood Culture - Preliminary Blood No Growth after 72 hours 03/10/22 15:53 Blood Culture - Preliminary Blood No Growth after 72 hours
[2022-03-14] MEDS: THIAMINE 100 MG TAB PO SCH (11:59)
[2022-03-14] MEDS: MULTIVITAMINS, THERA 1 EACH TAB PO SCH (11:59)
[2022-03-14] MEDS: FOLIC ACID 1 MG TAB PO SCH (11:59)
[2022-03-14] MEDS: acetaZOLAMIDE 250 MG TAB PO SCH ×2 (11:59→19:59)
--- NOTE | 2022-03-14 12:13 | P.PN ---
Progress Note - Text Progress Note Date: 03/14/22 Discussed with patient the recommendation for the use of a TLSO brace to provide stabilization and support when getting up and about. Patient verbalizes understanding. Prescription has been provided for TLSO brace and patient will need this urgently to promote activity level and participation with PT/OT.
--- NOTE | 2022-03-14 15:36 | P.PN ---
Progress Note - Text Progress Note Date: 03/14/22 Patient to receive TLSO brace to provide support and stability. Encourage to work with PT/OT. Our services will be signing off at this time. No emergent or urgent surgical intervention at this time. Please feel free to reach out for any questions, concerns, or need to re-consult.
[2022-03-14] MEDS: METOPROLOL SUCCINATE (ER) 25 MG TAB.ER.24H PO SCH (22:17)
[2022-03-15] MEDS: MIDODRINE 5 MG TAB PO SCH ×3 (06:56→17:19)
[2022-03-15] MEDS: PANTOPRAZOLE 40 MG TABLET PO SCH (06:56)
[2022-03-15 07:55] LABS: Basophils % (A) 0 %; Eosinophils # (A) 0.1 k/uL (0-0.7); Eosinophils % (A) 1 %; HCT 38.9 % (39.0-53.0); HGB 12.3 gm/dL (13.0-17.5); Hypochromasia Moderate; Lymphocytes # (A) 0.5 k/uL (1.0-4.8); Lymphocytes % (A) 6 %; MCH 36.4 pg (25.0-35.0); MCHC 31.7 g/dL (31.0-37.0); MCV 114.7 fL (80.0-100.0); Macrocytosis Marked; Monocytes # (A) 0.5 k/uL (0-1.0); Monocytes % (A) 7 %; Neutrophils # (A) 6.1 k/uL (1.3-7.7); Neutrophils % (A) 84 %; Platelet Count 154 k/uL (150-450); RBC 3.39 m/uL (4.30-5.90); RDW 14.2 % (11.5-15.5); WBC 7.3 k/uL (3.8-10.6)
[2022-03-15 08:10] LABS: Calcium 7.4 mg/dL (8.4-10.2); Magnesium 1.7 mg/dL (1.6-2.3)
[2022-03-15] MEDS: AMIODARONE 200 MG TAB PO SCH ×2 (08:34→20:32)
[2022-03-15] MEDS: acetaZOLAMIDE 250 MG TAB PO SCH ×2 (08:34→20:31)
[2022-03-15] MEDS ORDERED: Potassium Replacement Protocol 1 EACH MISC MISCELLANE PRN (08:34)
[2022-03-15] MEDS: DAPAGLIFLOZIN PROPANEDIOL 10 MG TABLET PO SCH (08:34)
[2022-03-15] MEDS: APIXABAN 5 MG TAB PO SCH ×2 (08:34→20:32)
[2022-03-15] MEDS: CYANOCOBALAMIN 500 MCG TAB PO SCH (08:34)
[2022-03-15] MEDS: POTASSIUM CHLORIDE ER 20 MEQ TAB.ER PO SCH ×2 (09:06→10:21)
[2022-03-15 09:08] VITALS: BMI 21.4
[2022-03-15] MEDS: FUROSEMIDE 10 MG/ML 4 ML VIAL IV SCH (09:34)
--- NOTE | 2022-03-15 10:06 | P.PN ---
Subjective PROGRESS NOTE The patient is a 76-year-old male with a known history of atrial fibrillation, followed by a sub arc operator at [facility] who presented with symptoms of progressive weakness, fatigue and worsening dyspnea. He has a chron ic cough. He denies any prior history of chest discomfort. He has been told that he has a normal systolic function. He has been evaluated for possible cardioversion and was initiated on amiodarone about 6 weeks ago according to him. He denies any dizziness or palpitations. He has no clear PND or orthopnea. He has been anticoagulated. He has a prior history of smoking but stopped over 5 years ago. In the emergency room he was noted to have evidence of CHF with mild elevation of his troponin. His chest x-ray was consistent with pleural effusion. March 12: The patient feels better today, his breathing is better. His peripheral edema has improved. He denies any chest discomfort. He is complaining of back discomfort. He has no nausea or vomiting. His echocardiogram is pending. 03/13 Patient seen and examined. Patient is having borderline blood pressures 80s over 60s however asymptomatic and does not do any walking. He states this is secondary to compression fractures in the past. Creatinine stable 1.6. He has been on Midodrin. Echocardiogram reviewed with EF 35% with moderate to severe tricuspid regurgitation with RVSP 28 and moderate right ventricular dilation. 03/14 Patient seen and examined. He has been having good urine output. His Toprol has been held the last 3 nights secondary to borderline blood pressures in the 90s over 50s. Denies any chest pain or pressure. Remains in A. fib with heart rates in the 70s to 80s. Cr mildly improved to 1.4 today. Bicarb up to 43. 03/15 Patient seen and examined. Patient did have good urine output with -2.7 L however creatinine up to 1.9 and bicarb up to 47. He has had borderline blood pressures in the 80s over 50s. He remains on 3 L nasal cannula however feels his breathing is somewhat better. Still has 1+ lower extremity edema. PHYSICAL EXAMINATION: Vitals reviewed LUNGS: Few crackles at the bases HEART: Irregular rate and rhythm, S1, S2. No S3. systolic ejection murmur ABDOMEN: Soft, nontender, no organomegaly EXTREMETIES: +2 edema IMPRESSION: 1. Acute on chronic systolic heart failure with EF 35%. More right sided than left sided heart failure 2. Persistent atrial fibrillation 3. Chronic kidney disease 4. Chronic back pain 5. Moderate RV dilation. May be related to pulmonary hypertension, underestimated secondary to RV hypokinesis 6. Moderate to severe tricuspid regurgitation PLAN: Patient with increasing creatinine up to 1.9 which may be related to hypotensive episodes. Increase Midodrin to 10 mg 3 times a day and hold diuretics for today. Monitor creatinine. Further recommendations to follow. Objective - Vital Signs Vital signs: Vital Signs Temp 97.6 F 03/15/22 08:35 Pulse 79 03/15/22 08:35 Resp 18 03/15/22 08:35 BP 88/51 03/15/22 08:35 Pulse Ox 92 L 03/15/22 08:35 FiO2 Intake & Output 03/14/22 03/15/22 03/15/22 18:59 06:59 18:59 Intake Total 474 236 Output Total 1100 0 Balance -545 -1586 Weight 68 kg 68 kg Intake: Oral 474 236 Output: Urine 1100 2049 Other: Voiding Method External Catheter External Catheter External Catheter - Labs CBC & Chem 7: 03/15/22 06:38 03/15/22 06:38 Labs: Abnormal Lab Results - Last 24 Hours (Table) 03/15/22 03/15/22 Range/Units 06:38 06:38 RBC 3.39 L (4.30-5.90) m/uL Hgb 12.3 L (13.0-17.5) gm/dL Hct 38.9 L (39.0-53.0) % MCV 114.7 H (80.0-100.0) fL MCH 36.4 H (25.0-35.0) pg Lymphocytes # 0.5 L (1.0-4.8) k/uL Macrocytosis Marked A Sodium 133 L (137-145) mmol/L Potassium 3.0 L (3.5-5.1) mmol/L Chloride 85 L (98-107) mmol/L Carbon Dioxide 47 H* (22-30) mmol/L BUN 42 H (9-20) mg/dL Creatinine 1.97 H (0.66-1.25) mg/dL Calcium 7.4 L (8.4-10.2) mg/dL Microbiology - Last 24 Hours (Table) 03/10/22 16:02 Blood Culture - Preliminary Blood No Growth after 96 hours 03/10/22 15:53 Blood Culture - Preliminary Blood No Growth after 96 hours
[2022-03-15] MEDS: MULTIVITAMINS, THERA 1 EACH TAB PO SCH (11:28)
[2022-03-15] MEDS: THIAMINE 100 MG TAB PO SCH (11:28)
[2022-03-15] MEDS: FOLIC ACID 1 MG TAB PO SCH (11:28)
--- NOTE | 2022-03-15 12:44 | P.PN ---
Subjective Progress Note Date: 03/15/22 76-year-old male patient presented to the ED for generalized weakness. His condition progresses been getting worse in his legs got weak when he was unable to carry himself. No reported falls. He arrived to the emergency department with the patient was found to be hypoxic with a pulse ox of 70%, on room air, and he was placed on 2 L of O2 nasal cannula. Denies having any form of chronic lung disease. He states that he has underlying congestion heart failure. He has noted increased lower extremity edema and. Also weight gain and cough. In the emergency, he was afebrile, hemodynamically stable, the lesion was at 9.6 hemoglobin was 14.4 with a platelet count of 149, sodium was 142 with a BUN of 54 and a creatinine was 1.4. Coagulation profile was showing INR of 1.5 with a PT of 15 and a PTT of 27 and a d-dimer of 0.8. Influenza screen was negative. RSV was negative. Covid 19 testing was negative. Lactic acid level was at 2.2. Calcium was 8.7. LFTs were normal. CPK was 250. ProBNP level was 13,200. Initial troponin was 0.119. The EKG was consistent with chronic atrial fibrill ation. He did have a mild tachycardia. He also had a right bundle-branch block pattern and Q waves over the anterior septal leads.the chest x-ray was consistent with small left-sided pleural effusion, COPD, increased interstitial markings bilaterally On 03/11/2022, the patient is being seen for a follow-up. The patient remains on diuretics and patient is currently on Lasix 0 mg IV every 12 hours. Patient is also receiving a, his Rocephin and Zithromax. The patient had a fall and the CAT scan of the lumbosacral spine was done and showed some minimal multiple compression fractures of the level of L1. MRI of the spine is also to follow. Otherwise, the patient is doing well. No specific complaints for now. The patient remains on 3 L O2 nasal cannula. Cardiac rhythm is irregular consistent with atrial fibrillation.Repeat labs from today shows a white second of 9.0 with a hemoglobin 15.7, sodium is at 141, BUN is 64 with a creatinine 1.38. 03/12/2022, the patient on 4 L of oxygen nasal cannula and the patient continues to be on diuretics with IV Lasix with a negative fluid balance. Echocardiogram is still pending for now. Creatinine is up to 1.6 with a BUN of 55 and a sodium level is at 137. The white cycles done 0.2 with a hemoglobin of 15. The patient remains also on accommodation of Rocephin and Zithromax. Less congested compared to yesterday. The patient was seen by spine surgery for vertebral compression fracture. There was no need for any emergent orthopedic intervention this point in time. The brace was recommended. The patient is seen today 03/14/2022 in follow-up on the selective care unit. He is currently sitting up in bed. Awake and alert in no acute distress. He denies any worsening shortness of breath. He does have an occasional cough. No fever or chills. He is maintaining O2 saturations in the 90s on 3 L/m per nasal cannula.blood cultures reveal no growth. Sputum culture reveals no growth.white count 8.1. Hemoglobin 12.8. Platelets 169. Sodium 133. Potassium 3.6. Bicarb 43. BUN 46. Creatinine 1.44.he is continued on Lasix 40 mg IV every 12 hours, currently in a -1.4 L balance. Anticoagulated with Eliquis. MRI of the sp ine revealed a signal change within the superior endplate of T12 without significant loss of height is present suggesting underlying acute fracture. Some very minimal change may be present within the superior endplate of T11 compatible with mild endplate acute compression. This is superimposed on the chronic compression deformity of T11. he has been fitted with a brace. He is working with PT/OT. The patient is seen today 03/15/2022 in follow-up on the selective care unit. He is currently awake and alert in no acute distress. Sitting up in bed. maintaining good O2 saturations in the 90s on 3 L/m per nasal cannula. He's been afebrile. cultures revealed no growth. Sputum culture revealed no growth. White count 7.3. Hemoglobin 12.3. Platelets 154. Sodium 133. Potassium 3.0. Bicarb 47. BUN 42. Creatinine 1.97. Pro-calcitonin 0.08. Cortisol level 26. appendectomy is continued on Diamox. Lasix was discontinued. He remains anticoagulated with Eliquis. Objective - Vital Signs Vital signs: Vital Signs Temp 97.6 F 03/15/22 08:35 Pulse 79 03/15/22 08:35 Resp 18 03/15/22 08:35 BP 88/51 03/15/22 08:35 Pulse Ox 92 L 03/15/22 08:35 FiO2 Intake & Output 03/14/22 03/15/22 03/15/22 18:59 06:59 18:59 Intake Total 474 236 Output Total 1100 2049 Balance -186 -3333 Weight 68 kg 68 kg Intake: Oral 474 236 Output: Urine 1100 2049 Other: Voiding Method External Catheter External Catheter External Catheter - Exam GENERAL EXAM: Alert, pleasant 76-year-old male, on 3 L nasal cannula, comfortable in no apparent distress. HEAD: Normocephalic. EYES: Normal reaction of pupils, equal size. NOSE: Clear with pink turbinates. THROAT: No erythema or exudates. NECK: No masses, no JVD. CHEST: No chest wall deformity. LUNGS: Equal air entry with bibasilar crackles. CVS: S1 and S2 normal with no audible murmur, regular rhythm. ABDOMEN: No hepatosplenomegaly, normal bowel sounds, no guarding or rigidity. SPINE: No scoliosis or deformity SKIN: No rashes CENTRAL NERVOUS SYSTEM: No focal deficits, tone is normal in all 4 extremities. EXTREMITIES: There is 2+ peripheral edema. No clubbing, no cyanosis. Perip heral pulses are intact. - Labs CBC & Chem 7: 03/15/22 06:38 03/15/22 06:38 Labs: Abnormal Lab Results - Last 24 Hours (Table) 03/15/22 03/15/22 Range/Units 06:38 06:38 RBC 3.39 L (4.30-5.90) m/uL Hgb 12.3 L (13.0-17.5) gm/dL Hct 38.9 L (39.0-53.0) % MCV 114.7 H (80.0-100.0) fL MCH 36.4 H (25.0-35.0) pg Lymphocytes # 0.5 L (1.0-4.8) k/uL Macrocytosis Marked A Sodium 133 L (137-145) mmol/L Potassium 3.0 L (3.5-5.1) mmol/L Chloride 85 L (98-107) mmol/L Carbon Dioxide 47 H* (22-30) mmol/L BUN 42 H (9-20) mg/dL Creatinine 1.97 H (0.66-1.25) mg/dL Calcium 7.4 L (8.4-10.2) mg/dL Microbiology - Last 24 Hours (Table) 03/10/22 16:02 Blood Culture - Preliminary Blood No Growth after 96 hours 03/10/22 15:53 Blood Culture - Preliminary Blood No Growth after 96 hours Assessment and Plan Assessment: Acute exacerbation of chronic systolic CHF with an ejection fraction of 35%. The patient is presenting with worsening shortness of breath, increased edema, elevated proBNP level and a chest x-ray is consistent with CHF with small left- sided pleural effusion and interstitial markings bilaterally. Pro calcitonin 0.08. Acute hypoxic respiratory failure currently on 3 L of O2 nasal cannula Former smoker of 50 years quit approximately 10 years ago Chronic atrial fibrillation, maintained on a combination of metoprolol and amiodarone in addition to that the patient has been on long-term anticoagulants with Eliquis. Chronic stage III kidney disease, worsening creatinine secondary to diuretics and volume contraction Fall with with underlying acute fracture of T12 and possibly T11, no surgical intervention required. A brace has been ordered Plan: The patient was seen and evaluated Currently stable and on 3 L nasal cannula Continuing to diurese well Remains in a negative balance Lasix placed on hold, continues on Diamox We will see as needed I have personally seen and examined the patient, performed the documentation and the assessment and plan as written. Number of minutes spent on the visit: 10.
--- NOTE | 2022-03-15 13:41 | P.PN ---
Subjective This is a pleasant 76 years old male with multiple problems presents with respiratory symptoms, mainly with shortness of breath suspicious for acute CHF exacerbation, known ejection fraction unknown Also there is a suspicion of bilateral pneumonia. Patient has been feeling weakness for about several days and fell twice at home. For the last 3 days The patient feels generally weak however he denies specific weakness or asymmetric weakness. It looks like secondary to severe leg edema about 3+ He denies chest pain or abdominal pain. However per MRI of the thoracic and lumbar spine there's multiple levels of compression fractures. Today he thinks that his dyspnea is better. He is mildly tachypneic. He has full mentation. Patient is not on home oxygen His PCP is Dr. holder He has external urinary catheter Vitas looks stable, he is saturating 99% on 3 L, blood pressure on the low side 96/62 Creatinine improving slightly 1.4-1.3. 03/12/2022 Patient with mild tachypnea, no significant dyspnea, he remains on IV Lasix 40 mg twice daily and has good urine output however her blood pressure on the low side 82/59 1 and, metoprolol was held yesterday, creatinine went up 1.3-1.6. We added midodrine 5 mg 3 times a day) monitoring. Patient finish his Zithromax. Tomorrow's last dose of ceftriaxone. No need for further antibiotics after that per pulmonary team. Patient Is also on Eliquis blood thinner for A. fib, platelet count 148, hemoglobin normal. MRI of the lumbar spine for by leg weakness is pending, patient leg weakness mostly likely secondary to his significant leg edema 3+ Patient has external urine catheter 03/13/2022 Patient still complaining of from exertional dyspnea and occasional coughing, he has bilateral pitting leg edema 3+ and is currently on IV Lasix 40 mg twice daily, proBNP still elevated, however his blood pressure on the low normal, yesterday we added midodrine 5 mg however pressure this morning is still the same age [age], however patient with no dizziness or other significant complaint. We will check serum cortisol tomorrow. Echocardiogram still pending He is on ceftriaxone finishes therapy, no need for further antibiotic. Lumbar spine showing acute fracture T12, orthopedic team on the case. We will add fluid restriction 1200 mL today 03/14/2022 Patient breathing improving gradually, no dyspnea at rest however patient does not move a lot of because of his back pain, his pain in the lower back. MRI of the spine showing fracture of the 11-T12 with no significant tight clothes. Previous recommended by orthopedic team as well as PT/OT, subacute rehab recommend. mold yard worker consulted. His breathing is improving with IV Lasix 40 mg twice daily which is kept bowel. Also he is on home dose of Eliquis. Pneumonia felt less likely and he will finish his antibiotic course. His creatinine is slightly improving down to 1.4 most likely he has mild acute kidney injury on the top of chronic kidney disease most likely stage III. 03/15/2022 Patient today while lying and sitting up in bed he denies any symptoms, no dyspnea or dizziness. He complains from mild low back pain about 2/10. Orthopedic and pulmonary team already signed off. They recommended outpatient follow-up. Brace at bedside. PT/OT recommended subacute rehab. She was on the low side, midodrine was increased to 10 mg today. He has evidence of low ejection fraction of 35% and cartilage team on the case. Creatinine went up to 1.9 with low potassium at 3.0 been replaced per protocol. Objective - Vital Signs Vital signs: Vital Signs Temp 97.6 F 03/15/22 08:35 Pulse 79 03/15/22 08:35 Resp 18 03/15/22 08:35 BP 88/51 03/15/22 08:35 Pulse Ox 92 L 03/15/22 08:35 FiO2 Intake & Output 03/14/22 03/15/22 03/15/22 18:59 06:59 18:59 Intake Total 474 236 Output Total 1100 2049 Balance -817 -4585 Weight 68 kg 68 kg Intake: Oral 474 236 Output: Urine 1100 2049 Other: Voiding Method External Catheter External Catheter External Catheter - Exam -GENERAL: The patient is alert and oriented x3, not in any acute distress. Well developed, well nourished. Generally tired and weak HEENT: Pupils are round and equally reacting to light. EOMI. No scleral icterus. No conjunctival pallor. Normocephalic, atraumatic. No pharyngeal erythema. No thyromegaly. CARDIOVASCULAR: S1 and S2 present. No murmurs, rubs, or gallops. -PULMONARY: Chest is clear to auscultation, no wheezing . Mildly tachypneic and bilateral medication ABDOMEN: Soft, nontender, nondistended, normoactive bowel sounds. No palpable organomegaly. MUSCULOSKELETAL: No joint swelling or deformity. -EXTREMITIES: No cyanosis, clubbing, .bilateral pitting leg l edema. NEUROLOGICAL: Gross neurological examination did not reveal any focal deficits. SKIN: No rashes. no petechiae. - Labs CBC & Chem 7: 03/15/22 06:38 03/15/22 06:38 Labs: Abnormal Lab Results - Last 24 Hours (Table) 03/15/22 03/15/22 Range/Units 06:38 06:38 RBC 3.39 L (4.30-5.90) m/uL Hgb 12.3 L (13.0-17.5) gm/dL Hct 38.9 L (39.0-53.0) % MCV 114.7 H (80.0-100.0) fL MCH 36.4 H (25.0-35.0) pg Lymphocytes # 0.5 L (1.0-4.8) k/uL Macrocytosis Marked A Sodium 133 L (137-145) mmol/L Potassium 3.0 L (3.5-5.1) mmol/L Chloride 85 L (98-107) mmol/L Carbon Dioxide 47 H* (22-30) mmol/L BUN 42 H (9-20) mg/dL Creatinine 1.97 H (0.66-1.25) mg/dL Calcium 7.4 L (8.4-10.2) mg/dL Microbiology - Last 24 Hours (Table) 03/10/22 16:02 Blood Culture - Preliminary Blood No Growth after 96 hours 03/10/22 15:53 Blood Culture - Preliminary Blood No Growth after 96 hours Assessment and Plan Assessment: Acute CHF exacerbation, systolic with ejection fraction 35% Hypotension Bilateral pneumonia is suspected Acute kidney injury on chronic kidney disease, most likely secondary to hypertension Chronic atrial fibrillation on Eliquis Fall at home without losing consciousness Multiple vertebral compression fractures Bilateral patellar leg edema Generalized weakness more in the legs than upper extremities but symmetrical Plan: Patient finish antibiotic Lasix was held Obtain a brace per Orthopedic team Continue with home Eliquis Several consultants on the case including cardiology, pulmonary and orthopedic team Labs and medication were reviewed.. Continue same treatment. Continue with symptomatic treatment. Resume home medication. Monitor labs and vitals. DVT and GI prophylaxis. Further recommendations as per clinical course of the patient DVT prophylaxis: Eliquis GI Prophylaxis: ppi PT/OT: steve Prognosis is guarded
--- NOTE | 2022-03-15 15:20 | P.PN ---
Subjective Progress Note Date: 03/15/22 The patient is seen at bedside and he feels is doing better. He is accompanied by his son. He feels the swelling is improving in lowers and has more strength. Objective - Vital Signs Vital signs: Vital Signs Temp 97.7 F 03/15/22 11:25 Pulse 51 L 03/15/22 11:25 Resp 17 03/15/22 11:25 BP 89/56 03/15/22 11:25 Pulse Ox 98 03/15/22 11:25 FiO2 Intake & Output 03/14/22 03/15/22 03/15/22 18:59 06:59 18:59 Intake Total 474 236 Output Total 1100 2050 800 Balance -626 -1814 -800 Weight 68 kg 68 kg Intake: Oral 474 236 Output: Urine 1100 0 800 Other: Voiding Method External Catheter External Catheter External Catheter - Exam GENERAL: The patient is lying in bed and is not in acute distress. CHEST: Bilateral lower extremity edema has drastically improved 1+ INTEGUMENTARY: No erythema or discoloration noted. NEUROLOGICAL: Higher mental function: The patient is awake, alert, oriented to self, place and time. Patient is following commands. No aphasia and no neglect. Cranial nerves: The pupils are round, equal and reactive to light and accommodation. Visual gay are full to confrontation throughout. Extraocular movement is intact no nystagmus is noted. Facial sensation is normal to touch throughout. The facial strength is normal throughout. Hearing is normal bilaterally to hand rub. Tongue is midline and moved [id number] without any difficulty. No dysarthria is noted. Shoulder shrug is normal bilaterally. Motor: The strength is thighs are 5- on left while right is 5-. Knees and ankles are 5-. Otherwise 5 over 5 throughout. Normal tone and bulk. Cerebellum: Normal finger to nose bilaterally. Sensation: Sensation is normal to touch throughout. Reflexes (right/left): 1+ throughout uppers while lowers are 0. Plantars are mute bilaterally. Some of the workup during this hospital visit consisted of: MCV is 112 and repeat is 115. CK level is 250 which is minimally slightly elevated. Her creatinine is 1.42 in the BUN is 54, initial low serum glucose is 103, calcium is 8.7, mag magnesium 2.0, phosphorus is 4.1, AST and ALT is within normal limits CT thorax and lumbar is reported as diffuse osseous demineralization limits evaluation for acute fracture. No obvious fracture line identified. Consider MRI for further evaluation if the repeat CAT as there remains clinical concern. L1 with retropulsion up to 5 mm could represent sequela of compression fracture attention on MRI. No evidence for sacral fracture. Bilateral sacroiliac joint degeneration. There is air space opacity seen throughout the long correlate for pneumonia. Cardiomegaly, pulmonary vascular congestion and pleural effusion correlate with serum BMP for heart failure Venous duplex is negative for DVT in both legs Vitamin B12 354 Serum folate is 8.90 TSH: 26.30 MRI Lumbar is reported as signal change within the superior endplate of T12 without significant loss of height is present suggestive underlying acute fracture. Some very minimal change in May at present within the superior endplate of T11 compatible with mild endplate acute compression. There is superimposed on chronic compression deformity of T11 - Labs CBC & Chem 7: 03/15/22 06:38 03/15/22 06:38 Labs: Abnormal Lab Results - Last 24 Hours (Table) 03/15/22 03/15/22 Range/Units 06:38 06:38 RBC 3.39 L (4.30-5.90) m/uL Hgb 12.3 L (13.0-17.5) gm/dL Hct 38.9 L (39.0-53.0) % MCV 114.7 H (80.0-100.0) fL MCH 36.4 H (25.0-35.0) pg Lymphocytes # 0.5 L (1.0-4.8) k/uL Macrocytosis Marked A Sodium 133 L (137-145) mmol/L Potassium 3.0 L (3.5-5.1) mmol/L Chloride 85 L (98-107) mmol/L Carbon Dioxide 47 H* (22-30) mmol/L BUN 42 H (9-20) mg/dL Creatinine 1.97 H (0.66-1.25) mg/dL Calcium 7.4 L (8.4-10.2) mg/dL Microbiology - Last 24 Hours (Table) 03/10/22 16:02 Blood Culture - Preliminary Blood No Growth after 96 hours 03/10/22 15:53 Blood Culture - Preliminary Blood No Growth after 96 hours Assessment and Plan Assessment: Recurrent falls with weakness in lowers legs: I feel more due to his edema from congestive heart failure that is progressively worsening. Did not appreciate focal weakness in lowers. Has L1 compression fracture notified for one year. Also has acute fracture in T11 and compression fracture in T12 on MRI. Kidney insufficiency (unsure if acute, or chronic) Elevated troponin Elevated MCV. Unsure cause Atrial fibrillation on eliquis and amiodarone Hx of compression L1 fracture Congestive heart failure Plan: Orthopedic team is on board. They stated no surgical intervention at this time. Patient has acute compression fracture in T11 and compression fracture reported on T12 and will defer management to orthopedic team. On thiamine 100mg daily and folic acid 1mg daily by parimary team. On Vitamin B12 1000mcg daily since has low normal levels. PT and OT are consulted. Cardiology team is on board. Will defer the rest of medical management to primary team. Otherwise no additional neurological work-up. Will sign off. Please notify neurology team if any further concerns. The plan is discussed with patient and his family member. Time with Patient: Less than 30
[2022-03-15] MEDS: METOPROLOL SUCCINATE (ER) 25 MG TAB.ER.24H PO SCH (20:31)
[2022-03-16] MEDS: PANTOPRAZOLE 40 MG TABLET PO SCH (06:58)
[2022-03-16] MEDS: MIDODRINE 5 MG TAB PO SCH ×2 (06:58→12:04)
[2022-03-16 08:41] LABS: Basophils % (A) 0 %; Eosinophils # (A) 0.1 k/uL (0-0.7); Eosinophils % (A) 1 %; HCT 41.8 % (39.0-53.0); HGB 12.8 gm/dL (13.0-17.5); Hypochromasia Marked; Lymphocytes # (A) 0.4 k/uL (1.0-4.8); Lymphocytes % (A) 6 %; MCH 36.4 pg (25.0-35.0); MCHC 30.8 g/dL (31.0-37.0); MCV 118.5 fL (80.0-100.0); Macrocytosis Marked; Mean Platelet Volume 8.8; Monocytes # (A) 0.4 k/uL (0-1.0); Monocytes % (A) 6 %; Neutrophils # (A) 5.6 k/uL (1.3-7.7); Neutrophils % (A) 86 %; Platelet Count 171 k/uL (150-450); RBC 3.53 m/uL (4.30-5.90); RDW 14.3 % (11.5-15.5); WBC 6.6 k/uL (3.8-10.6)
--- NOTE | 2022-03-16 08:43 | P.PN ---
Subjective PROGRESS NOTE The patient is a 76-year-old male with a known history of atrial fibrillation, followed by a club lounge attendant at [facility] who presented with symptoms of progressive weakness, fatigue and worsening dyspnea. He has a chron ic cough. He denies any prior history of chest discomfort. He has been told that he has a normal systolic function. He has been evaluated for possible cardioversion and was initiated on amiodarone about 6 weeks ago according to him. He denies any dizziness or palpitations. He has no clear PND or orthopnea. He has been anticoagulated. He has a prior history of smoking but stopped over 5 years ago. In the emergency room he was noted to have evidence of CHF with mild elevation of his troponin. His chest x-ray was consistent with pleural effusion. March 12: The patient feels better today, his breathing is better. His peripheral edema has improved. He denies any chest discomfort. He is complaining of back discomfort. He has no nausea or vomiting. His echocardiogram is pending. 03/13 Patient seen and examined. Patient is having borderline blood pressures 80s over 60s however asymptomatic and does not do any walking. He states this is secondary to compression fractures in the past. Creatinine stable 1.6. He has been on Midodrin. Echocardiogram reviewed with EF 35% with moderate to severe tricuspid regurgitation with RVSP 28 and moderate right ventricular dilation. 03/14 Patient seen and examined. He has been having good urine output. His Toprol has been held the last 3 nights secondary to borderline blood pressures in the 90s over 50s. Denies any chest pain or pressure. Remains in A. fib with heart rates in the 70s to 80s. Cr mildly improved to 1.4 today. Bicarb up to 43. 03/15 Patient seen and examined. Patient did have good urine output with -2.7 L however creatinine up to 1.9 and bicarb up to 47. He has had borderline blood pressures in the 80s over 50s. He remains on 3 L nasal cannula however feels his breathing is somewhat better. Still has 1+ lower extremity edema. 03/16 Patient seen and examined. Creatinine not resulted yet today however Lasix was held. Denies any chest pain or pressure. States his breathing is close to back to normal. Mainly complaining of back pain. Midodrin was increased to 10 3 times a day yesterday and blood pressures in the 80s to 90s systolic with a map of 68, 71. PHYSICAL EXAMINATION: Vitals reviewed LUNGS: Few crackles at the bases HEART: Irregular rate and rhythm, S1, S2. No S3. systolic ejection murmur ABDOMEN: Soft, nontender, no organomegaly EXTREMETIES: +2 edema IMPRESSION: 1. Acute on chronic systolic heart failure with EF 35%. More right sided than left sided heart failure 2. Persistent atrial fibrillation 3. Chronic kidney disease 4. Chronic back pain 5. Moderate RV dilation. May be related to pulmonary hypertension, underestimated secondary to RV hypokinesis 6. Moderate to severe tricuspid regurgitation PLAN: Patient with increasing creatinine up to 1.9 which may be related to hypotensive episodes. Midodrine was increased to 10 mg 3 times a day His LE edema has predominantly improved and continue to hold diuretics Await creatinine. Further recommendations to follow. Objective - Vital Signs Vital signs: Vital Signs Temp 97.7 F 03/16/22 04:00 Pulse 75 03/16/22 04:00 Resp 12 03/16/22 04:00 BP 93/60 03/16/22 04:00 Pulse Ox 94 L 03/16/22 04:00 FiO2 Intake & Output 03/15/22 03/16/22 03/16/22 18:59 06:59 18:59 Output Total 800 300 Balance -800 -300 Weight 68 kg 68.5 kg Output: Urine 800 300 Other: Voiding Method External Catheter External Catheter - Labs CBC & Chem 7: 03/15/22 06:38 03/15/22 06:38 Labs: Microbiology - Last 24 Hours (Table) 03/10/22 16:02 Blood Culture - Preliminary Blood No Growth after 120 hours 03/10/22 15:53 Blood Culture - Preliminary Blood No Growth after 120 hours
[2022-03-16 09:03] LABS: Calcium 7.8 mg/dL (8.4-10.2); Potassium 3.4 mmol/L (3.5-5.1)
[2022-03-16] MEDS: acetaZOLAMIDE 250 MG TAB PO SCH (09:09)
[2022-03-16] MEDS: APIXABAN 5 MG TAB PO SCH (09:09)
[2022-03-16] MEDS: AMIODARONE 200 MG TAB PO SCH (09:09)
[2022-03-16] MEDS: CYANOCOBALAMIN 500 MCG TAB PO SCH (09:09)
[2022-03-16] MEDS: DAPAGLIFLOZIN PROPANEDIOL 10 MG TABLET PO SCH (09:09)
[2022-03-16] MEDS ORDERED: POTASSIUM CHLORIDE ER 20 MEQ TAB.ER PO STA (09:35)
[2022-03-16] MEDS: FOLIC ACID 1 MG TAB PO SCH (12:04)
[2022-03-16] MEDS: MULTIVITAMINS, THERA 1 EACH TAB PO SCH (12:04)
[2022-03-16] MEDS: THIAMINE 100 MG TAB PO SCH (12:04)
[2022-03-16 12:30] VITALS: BP 91/63; PULSE 98; RESP 14; TEMP 97.7
--- NOTE | 2022-03-16 13:59 | P.DS ---
Providers Date of admission: 03/10/22 14:57 Attending physician: Vicente Quinonez Consults: 03/10/22 14:57 Consult Physician Urgent Consulting Provider: Hermelindo Vogel Consult Reason/Comments: Pneumonia, hypoxemia Do you want consulting provider notified?: Yes Consult Physician Urgent Consulting Provider: Alcon Mercado Consult Reason/Comments: CHF exacerbation, elevated troponin Do you want consulting provider notified?: Yes 03/10/22 21:17 Consult Physician Stat Consulting Provider: Boni Jacobson Consult Reason/Comments: fx of L4 Do you want consulting provider notified?: Yes 03/10/22 21:22 Consult Physician Stat Consulting Provider: Joseline Rahman Consult Reason/Comments: falls and weakness Do you want consulting provider notified?: Yes Primary care physician: Physician Nonstaff Hospital Course: Diagnoses: -Acute CHF exacerbation, systolic with ejection fraction 35% -Hypotension, blood pressure is low normal which patient says that his usual blood pressure. Midodrine started and metoprolol dose lowered. Stable upon discharge -Bilateral pneumonia is suspected. Patient finish treatment -Acute kidney injury on chronic kidney disease, most likely secondary to hypotension. Resolved -Most likely patient has chronic kidney disease stage III -Chronic atrial fibrillation on Eliquis -Fall at home without losing consciousness -Multiple vertebral compression fractures. Including T11 and T12. Orthopedic orders brace for him upon discharge -Bilateral pitting leg edema, improved -Generalized weakness more in the legs than upper extremities but symmetrical, patient would benefit from rehab Hospital course: This is a pleasant 76 years old male with multiple problems presents with respiratory symptoms, mainly with shortness of breath suspicious for acute CHF exacerbation, patient was treated with diuretics and he showed interval improvement. Also received antibiotics with cardiogenic primary team on the case, he'll finish treatment of antibiotics and his breathing is back to normal over the last 2 to 3. Patient also has weakness in both legs and fell at home, he is been evaluated by neurologist and orthopedic team. Patient hadn't MRI of the lumbar spine showing fracture of T11 and T12, patient has minimal pain at the site while at rest. Brace provided per orthopedic team recommendation. Orthopedic team Encourage patient to work with PT/OT. Also patient is on Eliquis for his A. fib, hemoglobin is stable. Blood pressure was on the low normal saline, asymptomatic, metoprolol was lowered 25 down to 12.5 mg, also he is on amiodarone 200 mg twice a day. Mid odrine was started by medical team at 5 mg and decrease by bait tier and to 10 mg 3 times a day. Mildly elevated creatinine 1.4 improved down to 1.6 upon discharge. His range while in the hospital was 1.3-1.6. A day of discharge patient was sitting up in bed looks comfortable, denies any symptoms. No chest pain or dyspnea. No abdominal pain. No change in urine or bowel habits. No fever. Patient agreeable with the discharge plan I going to subacute rehab today. State for discharge by all consultants with bait tier, orthopedic team and the neurologist. Also pulmonary team signed off the case. Problems and management plan were discussed with the patient and he verbalized understanding and acceptance Patient was found stable and can be discharged [place] in guarded prognosis however he needs follow-up as an outpatient. Patient was instructed to follow up with PCP Dr. funes within one week and patient agrees Patient also was instructed to follow up with bait tier Dr. Mercado in 1-2 weeks, cost control analyst Dr. Vogel in 1-2 weeks, and Dr. Jacobson in 1-2 weeks and he agrees to call and make appointments Lactic prognosis is also guarded, patient is high-risk for complications, rehospitalization. Physical exam -Gen: patient is a AAOx3, no distress. Generally weak. CVS: S1-S2, RRR, no murmur Lungs: B/L CTA, no wheezing Abdomen: soft, no distention, no tenderness, positive bowel sounds Extremity: no leg edema or induration Time spent more than 35 minutes Plan - Discharge Summary New Discharge Prescriptions: New acetaZOLAMIDE [Diamox] 250 mg PO BID tab Pantoprazole [Protonix] 40 mg PO AC-BRKFST tab Cyanocobalamin [Vitamin B-12] 1,000 mcg PO DAILY tab Dapagliflozin Propanediol [Farxiga] 10 mg PO DAILY tab Folic Acid 1 mg PO DAILY@1200 tab Multivitamins, Thera [Multivitamin (formulary)] 1 each PO DAILY@1200 tab Midodrine [ProAmatine] 10 mg PO AC-TID tab Metoprolol Succinate (ER) [Toprol XL] 12.5 mg PO HS tab Acetaminophen Tab [Tylenol] 650 mg PO Q6HR PRN tab PRN Reason: Mild Pain Or Fever > 100.5 Thiamine [Vitamin B-1] 100 mg PO DAILY@1200 tab Continue Apixaban [Eliquis] 5 mg PO BID Amiodarone [Cordarone] 200 mg PO Q12H Discontinued Metoprolol Succinate (ER) [Toprol Xl] 25 mg PO HS Furosemide [Lasix] 20 mg PO DAILY Discharge Medication List Amiodarone [Cordarone] 200 mg PO Q12H 03/10/22 [History] Apixaban [Eliquis] 5 mg PO BID 03/10/22 [History] Acetaminophen Tab [Tylenol] 650 mg PO Q6HR PRN tab 03/16/22 [Rx] Cyanocobalamin [Vitamin B-12] 1,000 mcg PO DAILY tab 03/16/22 [Rx] Dapagliflozin Propanediol [Farxiga] 10 mg PO DAILY tab 03/16/22 [Rx] Folic Acid 1 mg PO DAILY@1200 tab 03/16/22 [Rx] Metoprolol Succinate (ER) [Toprol XL] 12.5 mg PO HS tab 03/16/22 [Rx] Midodrine [ProAmatine] 10 mg PO AC-TID tab 03/16/22 [Rx] Multivitamins, Thera [Multivitamin (formulary)] 1 each PO DAILY@1200 tab 03/16/22 [Rx] Pantoprazole [Protonix] 40 mg PO AC-BRKFST tab 03/16/22 [Rx] Thiamine [Vitamin B-1] 100 mg PO DAILY@1200 tab 03/16/22 [Rx] acetaZOLAMIDE [Diamox] 250 mg PO BID tab 03/16/22 [Rx] Follow up Appointment(s)/Referral(s): Alcon Mercado MD [STAFF PHYSICIAN] - 1 Week [facility]ra[facility] [Primary Care Provider] - 1-2 days Boni Jacobson DO [Doctor of Osteopathic Medicine] - 1 Week Hermelindo Vogel MD [STAFF PHYSICIAN] - 1 Week Activity/Diet/Wound Care/Special Instructions: Heart healthy diet Activity is as tolerated Discharge Disposition: TRANSFER TO SNF/ECF
== END 2022-03-16 15:51 | DRG 291 ==
LOC: EC 11:06 → 4SSUR 14:57 → 3SCARD 16:16
PROVIDERS: ADMIT Hospitalist; ATTEND Hospitalist
DX: I13.0 Hypertensive heart and chronic kidney disease with heart failure and stage 1 through stage 4 chronic kidney disease, or unspecified chronic kidney disease (principal); I50.43 Acute on chronic combined systolic (congestive) and diastolic (congestive) heart failure; J96.01 Acute respiratory failure with hypoxia; J18.9 Pneumonia, unspecified organism; S22.089A Unspecified fracture of T11-T12 vertebra, initial encounter for closed fracture; N17.9 Acute kidney failure, unspecified; S32.049A Unspecified fracture of fourth lumbar vertebra, initial encounter for closed fracture; I48.19 Other persistent atrial fibrillation; I07.1 Rheumatic tricuspid insufficiency; N18.30 Chronic kidney disease, stage 3 unspecified; J43.9 Emphysema, unspecified; I27.29 Other secondary pulmonary hypertension; E86.0 Dehydration; I95.9 Hypotension, unspecified; G89.29 Other chronic pain; R77.8 Other specified abnormalities of plasma proteins; M79.89 Other specified soft tissue disorders; R00.0 Tachycardia, unspecified; I45.10 Unspecified right bundle-branch block; R29.6 Repeated falls; M41.9 Scoliosis, unspecified; M47.816 Spondylosis without myelopathy or radiculopathy, lumbar region; T50.2X5A Adverse effect of carbonic-anhydrase inhibitors, benzothiadiazides and other diuretics, initial encounter; R01.1 Cardiac murmur, unspecified; M46.1 Sacroiliitis, not elsewhere classified; Y92.009 Unspecified place in unspecified non-institutional (private) residence as the place of occurrence of the external cause; W01.0XXA Fall on same level from slipping, tripping and stumbling without subsequent striking against object, initial encounter; Z20.822 Contact with and (suspected) exposure to COVID-19; Z79.01 Long term (current) use of anticoagulants; Z87.891 Personal history of nicotine dependence; Z79.899 Other long term (current) drug therapy; Z79.84 Long term (current) use of oral hypoglycemic drugs; Z91.81 History of falling; Z85.51 Personal history of malignant neoplasm of bladder
CPT/HCPCS: 36415; 71046; 72100; 72128; 72131; 72158; 72192; 80048; 80053; 81001; 82533; 82550; 82607; 82746; 83605; 83735; 83880; 84100; 84145; 84443; 84484; 85025; 85379; 85610; 85730; 86140; 87040; 87070; 87205; 87636; 93005; 93306; 93970; 94760; 96361; 96365; 99285